=== PATIENT | female | born 1990 | race Caucasian/White ===

== ENCOUNTER 2016-12-06 01:24 | Emergency (ER) | payer BC ==
[~2016-12-06] VITALS: Ht 160 cm; Wt 68.0 kg
[~2016-12-06 01:24] MED LIST: GABAPENTIN100 MG ORAL; SEROQUEL25 MG ORAL
[2016-12-06 01:30] VITALS: BP 116/73
[2016-12-06] MEDS ORDERED: Metoclopramide 10mg/2ml Inj IVP ONE (02:45)
[2016-12-06 03:09] VITALS: BP 106/72
[2016-12-06] MEDS ORDERED: NOVOLOG100 UNIT/3 SUBQ (03:22)
--- NOTE | 2016-12-06 04:18 | Emergency Room Report ---
History of Present Illness General Chief Complaint: Substance Abuse Source: Patient, EMS Present Illness HPI Patient was found that a sore facility with what sounds to be overdose on heroin Patient was given Narcan and responded well Here the patient is awake and alert had some increased nausea after this episode Denies any chest pain or shortness of breath denies any back or flank pain Patient states that this is not the first time she has overdose on heroin requiring the reversal Narcan medication Denies any suicidal or homicidal thoughts And reports incidental overdose ingestion Allergies: Coded Allergies: No Known Allergies (Unverified , 12/06/16) Patient History Past Medical History: see triage record Pertinent Family History: none Last Menstrual Period: 2 weeks ago Reviewed Nursing Documentation: PMH: Agreed, PSxH: Agreed Nursing Documentation-PMH Hx Diabetes: Yes Hx Seizures: Yes Review of Systems All Other Systems: negative except mentioned in HPI Physical Exam Vital Signs Date Time Temp Pulse Resp B/P Pulse Ox O2 Delivery O2 Flow Rate FiO2 12/06/16 01:15 99.0 97 18 123/83 99 Room Air Sp02 EP Interpretation: reviewed, normal General Appearance: no apparent distress - However was nauseated upon arrival Head: normocephalic, atraumatic Eyes: bilateral eye EOMI, bilateral eye PERRL ENT: hearing grossly normal, normal pharynx, TMs + canals normal, uvula midline Neck: full range of motion, supple, no meningismus, no bony tend Respiratory: lungs clear, normal breath sounds, no rhonchi, no respiratory distress, no retraction, no accessory muscle use Cardiovascular #1: normal peripheral pulses, regular rate, rhythm, no edema, no gallop, no JVD, no murmur Gastrointestinal: normal bowel sounds, non tender, soft, no mass, no organomegaly, non-distended, no guarding, no hernia, no pulsatile mass, no rebound Genitourinary: no CVA tenderness Musculoskeletal: normal inspection Neurologic: oriented x3, responsive, air export agent III-XII nml as tested, motor strength/ tone normal, sensory intact Psychiatric: mood/affect normal Skin: normal color, no rash, warm/dry, palpation normal Lymphatic: normal inspection, no adenopathy Medical Decision Making Diagnostic Impression: Primary Impression: Substance abuse Additional Impression: Heroin overdose ER Course Patient was further hydrated and provided with antiemetic medication Continues to do significantly better Patient's test was also negative Patient was that she will not likely be able to return to her sober living after overdosing on heroin Patient will have further discussion for placement with a psychotherapist social worker in the morning Otherwise at this time is stable for emergency room discharge Patient's glucose was rechecked and stabilized Rhythm Strip Diag. Results EP Interpretation: yes Rate: 88 Rhythm: NSR, no PVC's, no ectopy Last Vital Signs Date Time Temp Pulse Resp B/P Pulse Ox O2 Delivery O2 Flow Rate FiO2 12/06/16 03:09 98.9 93 17 106/72 99 Room Air Status: improved Disposition: HOME, SELF-CARE Condition: Improved Referrals: NOT CHOSEN IPA/,REFERRING (PCP) Patient Instructions: Finding Treatment for Addiction Additional Instructions: Patient is provided with the discharge instructions notified to follow up with primary doctor in the next 2-3 days otherwise return to the er with any worsening symptoms. LONG MCKEON D.O. Dec 06, 2016 04:18
[2016-12-06 06:52] VITALS: BP 112/73
[2016-12-06 07:25] VITALS: BP 106/70
[2016-12-06 10:51] VITALS: BP 117/83
== END 2016-12-06 10:55 | disposition home or self-care (01) ==
LOC: EDBD 01:24 → EMR 02:00
DX: T40.1X1A Poisoning by heroin, accidental (unintentional), initial encounter (principal); Y92.9 Unspecified place or not applicable; E11.9 Type 2 diabetes mellitus without complications
CPT/HCPCS: 81025; 96361; 96374; 96375; 99284; J2405; J2765

== ENCOUNTER 2019-01-12 21:04 | Emergency (ER) | payer BC ==
[~2019-01-12] VITALS: Ht 160 cm; Wt 61.2 kg
[~2019-01-12 21:04] MED LIST changes: +NOVOLOG100 UNIT/3 SUBQ
--- NOTE | 2019-01-12 21:35 | NUR ---
ED Nurse Note: Patient walk in c/o multiple panic attacks over the past 2 days. Patient states she normally takes Klonopin and ran out of her prescription. Patient reports right leg numbness since AM. at time of arriva patients blood pressure was 57/35 with a blood sugar of 177. patient is alert and oriented x4 however with a unsteady gait, patient reports of taking an unknown amount of klonopin. Dr. travis aware and notified of patients blood pressure
[2019-01-12 21:45] VITALS: BP 85/52
--- NOTE | 2019-01-12 22:30 | NUR ---
ED Nurse Note: patient is refusing for labs to be drawn as well as medications, Dr. Nava aware and notified
[2019-01-12 23:00] VITALS: BP 85/52
--- NOTE | 2019-01-12 23:00 | NUR ---
ER DISCHARGE NOTE: Patient is leaving AMA without signing papers, patient wants to leave because she is going to another hospital tomorrow morning. patient was informed risks of leaving such as , patient took all belongings with them and ambulated to ED. no labs or meds were done and given. id band removed Addendum: 01/13/19 at 1624 by BPARENTELA ER DISCHARGE NOTE: Patient is leaving AMA without signing papers, patient wants to leave because she is going to another hospital tomorrow morning. patient was informed risks of leaving such as , patient took all belongings with them and ambulated out of ED. no labs or meds were done and given. id band removed
--- NOTE | 2019-01-13 04:18 | Emergency Room Report ---
History of Present Illness General Chief Complaint: General Complaint Source: Patient Present Illness HPI Patient 28-year-old female presented after increased agitation. Generally patient is noted to have prior history of type 1 diabetes. She reports having run out of her Klonopin and feeling somewhat increased anxious. Patient stated that she taken clonidine earlier in the day for blood pressure. She was noted to have low blood pressure when seen by triage nurse. Patient denies any dizziness. Allergies: Coded Allergies: No Known Allergies (Unverified , 12/06/16) Patient History Past Medical History: see triage record Last Menstrual Period: 01/08/2019 Now: No Reviewed Nursing Documentation: PMH: Agreed; PSxH: Agreed Nursing Documentation-PMH Past Medical History: No History, Except For Hx Diabetes: Yes Hx Neurological Problems: Yes - anxiety Hx Seizures: Yes Review of Systems All Other Systems: negative except mentioned in HPI Physical Exam Vital Signs Date Time Temp Pulse Resp B/P (MAP) Pulse Ox O2 Delivery O2 Flow Rate FiO2 01/12/19 21:22 97.9 87 16 95 Room Air Sp02 EP Interpretation: reviewed, normal General Appearance: normal inspection, well appearing, alert Head: atraumatic ENT: normal ENT inspection, hearing grossly normal, normal voice Neck: normal inspection, full range of motion, supple, no bony tend Respiratory: normal inspection, lungs clear, normal breath sounds, no respiratory distress, no retraction, no wheezing Cardiovascular #1: regular rate, rhythm, no edema Gastrointestinal: normal inspection, normal bowel sounds, non tender, soft, no guarding, no hernia Genitourinary: no CVA tenderness Musculoskeletal: normal inspection, back normal, normal range of motion Neurologic: normal inspection, alert, responsive, speech normal Psychiatric: normal inspection, judgement/insight normal, mood/affect normal Skin: normal inspection, normal color, no rash Medical Decision Making Diagnostic Impression: Primary Impression: Anxiety disorder ER Course Patient was noted to have complaint of anxiety and states that she ran out of Klonopin. Differential diagnosis include was not limited to drug-seeking behavior, diabetic ketoacidosis, anxiety, dehydration among others. Patient was noted to have multiple concerning medical complaints. Patient was awake and alert does not appear to be tachypneic. Patient does not appear to be anxious. Laboratory testing was ordered to evaluate for possible diabetic ketoacidosis. Patient refused laboratory testing and stated she wanted to leave. Patient was advised that further workup was advised due to her anxiety. She does not appear to be in any distress. Patient was advised risk benefits and alternatives of leaving AGAINST MEDICAL ADVICE and she indicated understanding and continue to want to leave. Last Vital Signs Date Time Temp Pulse Resp B/P (MAP) Pulse Ox O2 Delivery O2 Flow Rate FiO2 01/12/19 21:22 97.9 87 16 95 Room Air Status: unchanged Disposition: AGAINST MEDICAL ADVICE Condition: Unknown Referrals: NOT CHOSEN IPA/,REFERRING (PCP) Gadiel Nava MD Jan 13, 2019 04:18
== END 2019-01-12 23:00 | disposition home or self-care (01) ==
LOC: EMR 21:37
DX: F41.9 Anxiety disorder, unspecified (principal); R45.1 Restlessness and agitation; E10.9 Type 1 diabetes mellitus without complications
CPT/HCPCS: 96360; 99284

== ENCOUNTER 2019-01-21 13:40 | Inpatient (IN) | payer BC ==
[~2019-01-21] VITALS: Ht 162.6 cm; Wt 68.0 kg
[~2019-01-21 13:40] MED LIST changes: -KLONOPIN1 MG ORAL
[2019-01-21] MEDS ORDERED: KLONOPIN1 MG ORAL (14:15)
[2019-01-21 14:20] VITALS: BP 70/44
--- NOTE | 2019-01-21 14:20 | NUR ---
ED Nurse Note: pt walked in to ED from home due to pain on both leg for couple days. denies any injury or trauma. pt able to walked with steady gait. AAO x4. pt appears to be very sleepy, lethargic and droswy. arousable by voice but went back to sleep right away. skin warm to touch. no open wound noted. low bp noted on court recording monitor. fluid will be given. will wait for the further order.
[2019-01-21 14:59] LABS: BASOPHILS % (AUTO) 1.5 % (0.0-2.0); EOSINOPHILS % (AUTO) 1.1 % (0.0-3.0); HEMATOCRIT 36.3 % (37.0-47.0); HEMOGLOBIN 12.3 G/DL (12.0-16.0); LYMPHOCYTES % (AUTO) 40.3 % (20.0-45.0); MEAN CORPUSCULAR VOLUME 89 FL (80-99); MONOCYTES % (AUTO) 8.5 % (1.0-10.0); NEUTROPHILS % (AUTO) 48.6 % (45.0-75.0); PLATELET COUNT 246 K/UL (150-450); RED BLOOD COUNT 4.07 M/UL (4.20-5.40); RED CELL DISTRIBUTION WIDTH 10.9 % (11.6-14.8); WHITE BLOOD COUNT 5.2 K/UL (4.8-10.8)
--- NOTE | 2019-01-21 15:20 | NUR ---
ED Nurse Note: sandwitches and orange juices provide.
[2019-01-21 15:26] LABS: ANION GAP 13 mmol/L (5-15); BLOOD UREA NITROGEN 39 mg/dL (7-18); CALCIUM 10.7 MG/DL (8.5-10.1); CARBON DIOXIDE 28 MMOL/L (21-32); CHLORIDE 102 MMOL/L (98-107); CREATININE 1.4 MG/DL (0.55-1.30); POTASSIUM 3.6 MMOL/L (3.5-5.1); SODIUM 143 MMOL/L (136-145)
[2019-01-21 15:30] VITALS: BP 130/80
--- NOTE | 2019-01-21 15:30 | NUR ---
ED Nurse Note: pt refused in and out catheter for urine sample. kvng wait.
[2019-01-21 15:31] LABS: ALANINE AMINOTRANSFERASE 16 U/L (12-78); ALBUMIN 4.4 G/DL (3.4-5.0); ALKALINE PHOSPHATASE 161 U/L (46-116); ASPARTATE AMINO TRANSFERASE 16 U/L (15-37); BILIRUBIN,TOTAL 0.4 MG/DL (0.2-1.0)
[2019-01-21 16:30] VITALS: BP 79/44
--- NOTE | 2019-01-21 16:41 | Emergency Room Report ---
History of Present Illness General Chief Complaint: General Complaint Source: Patient Present Illness HPI 28-year-old female presents ED for evaluation. Patient complaining of back pain radiating down the legs for last 5 days. Dull, 8 out of 10. She observed walking into ED. Denies any recent fall or injury. denies bowel or bladder incontinence. Patient is very lethargic on initial evaluation. She states that she took 3 mg of Klonopin today. States she is supposed to take 1 mg but states she was feeling very anxious. Blood pressure low. Blood pressure 70 systolic. No other aggravating relieving factors. Denies any other associated symptoms Allergies: Coded Allergies: No Known Allergies (Unverified , 12/06/16) Patient History Past Medical History: psych hx Past Surgical History: none Pertinent Family History: none Social History: Reports: drug use; Denies: smoking, alcohol use Last Menstrual Period: 12/20/18 Now: No : 0 Para: 0 Immunizations: UTD Reviewed Nursing Documentation: PMH: Agreed; PSxH: Agreed Nursing Documentation-PMH Past Medical History: No History, Except For Hx Diabetes: Yes Hx Neurological Problems: Yes - anxiety Hx Seizures: Yes Review of Systems All Other Systems: negative except mentioned in HPI Physical Exam Vital Signs Date Time Temp Pulse Resp B/P (MAP) Pulse Ox O2 Delivery O2 Flow Rate FiO2 01/21/19 14:10 98.1 90 18 70/50 97 Room Air Sp02 EP Interpretation: reviewed, normal General Appearance: no apparent distress, GCS 15, non-toxic, lethargic Head: normocephalic, atraumatic Eyes: bilateral eye normal inspection, bilateral eye PERRL ENT: hearing grossly normal, normal pharynx, no angioedema, normal voice Neck: full range of motion, supple/symm/no masses Respiratory: chest non-tender, lungs clear, normal breath sounds, speaking full sentences Cardiovascular #1: regular rate, rhythm, no edema Cardiovascular #2: 2+ carotid (R), 2+ carotid (L), 2+ radial (R), 2+ radial (L) , 2+ dorsalis pedis (R), 2+ dorsalis pedis (L) Gastrointestinal: normal bowel sounds, non tender, soft, non-distended, no guarding, no rebound Rectal: deferred Genitourinary: normal inspection, no CVA tenderness Musculoskeletal: back normal, gait/station normal, normal range of motion, non- tender Neurologic: responsive, motor strength/tone normal, sensory intact, other - lethargic Psychiatric: other - lethargic Reflexes: 3+ bicep (R), 3+ bicep (L), 3+ tricep (R), 3+ tricep (L), 3+ knee (R) , 3+ knee (L) Skin: normal color, no rash, warm/dry, well hydrated Lymphatic: no adenopathy Medical Decision Making Diagnostic Impression: Primary Impression: Substance abuse Additional Impression: Overdose Qualified Codes: T50.901A - Poisoning by unspecified drugs, medicaments and biological substances, accidental (unintentional), initial encounter ER Course Hospital Course 28-year-old female presents with lethargy, hypotensive. Took Klonopin today. History of diabetes Differential diagnoses include: dehydration, infection, overdose, DKA Clinical course She placed on stretcher. On property assessment monitor. After initial history and physical ordered labs, IV fluids Labs reviewed-electrolytes okay, no leukocytosis, hemoglobin/hematocrit stable, Utox negative Patient initially hypotensive. Improved after multiple IV fluid boluses Patient remains lethargic , not safe for discharge at this time. It does not appear that patient was trying to hurt herself case discussed with Dr. Zavala and he agreed to accept the patient to his service for further care and support i. I feel this is a highly complex case requiring extensive working including EKG/Rhythm strip, Xray/CT/US, Blood/urine lab work, repeat exams while in ED, and administration of strong opiates/narcotics for pain control, admission to hospital or close patient follow up. Diagnosis - substance abuse, overdose Admitted to floor in serious condition Labs Test 01/21/19 14:41 01/21/19 16:30 White Blood Count 5.2 K/UL (4.8-10.8) Red Blood Count 4.07 M/UL (4.20-5.40) Hemoglobin 12.3 G/DL (12.0-16.0) Hematocrit 36.3 % (37.0-47.0) Mean Corpuscular Volume 89 FL (80-99) Mean Corpuscular Hemoglobin 30.2 PG (27.0-31.0) Mean Corpuscular Hemoglobin Concent 33.9 G/DL (32.0-36.0) Red Cell Distribution Width 10.9 % (11.6-14.8) Platelet Count 246 K/UL (150-450) Mean Platelet Volume 5.5 FL (6.5-10.1) Neutrophils (%) (Auto) 48.6 % (45.0-75.0) Lymphocytes (%) (Auto) 40.3 % (20.0-45.0) Monocytes (%) (Auto) 8.5 % (1.0-10.0) Eosinophils (%) (Auto) 1.1 % (0.0-3.0) Basophils (%) (Auto) 1.5 % (0.0-2.0) Sodium Level 143 MMOL/L (136-145) Potassium Level 3.6 MMOL/L (3.5-5.1) Chloride Level 102 MMOL/L (98-107) Carbon Dioxide Level 28 MMOL/L (21-32) Anion Gap 13 mmol/L (5-15) Blood Urea Nitrogen 39 mg/dL (7-18) Creatinine 1.4 MG/DL (0.55-1.30) Estimat Glomerular Filtration Rate 45.1 mL/min (>60) Glucose Level 69 MG/DL (74-106) Calcium Level 10.7 MG/DL (8.5-10.1) Total Bilirubin 0.4 MG/DL (0.2-1.0) Aspartate Amino Transf (AST/SGOT) 16 U/L (15-37) Alanine Aminotransferase (ALT/SGPT) 16 U/L (12-78) Alkaline Phosphatase 161 U/L (46-116) Total Protein 8.7 G/DL (6.4-8.2) Albumin 4.4 G/DL (3.4-5.0) Globulin 4.3 g/dL Albumin/Globulin Ratio 1.0 (1.0-2.7) Human Chorionic Gonadotropin, Qual Negative (NEGATIVE) Salicylates Level 4.2 ug/mL (2.8-20) Acetaminophen Level < 2 MCG/ML (10-30) Serum Alcohol < 3 mg/dL Acetone Level Negative (NEGATIVE) Urine HCG, Qualitative Negative (NEGATIVE) Urine Opiates Screen Negative (NEGATIVE) Urine Barbiturates Screen Negative (NEGATIVE) Phencyclidine (PCP) Screen Negative (NEGATIVE) Urine Amphetamines Screen Negative (NEGATIVE) Urine Benzodiazepines Screen Negative (NEGATIVE) Urine Cocaine Screen Negative (NEGATIVE) Urine Marijuana (THC) Screen Negative (NEGATIVE) Last Vital Signs Date Time Temp Pulse Resp B/P (MAP) Pulse Ox O2 Delivery O2 Flow Rate FiO2 01/21/19 15:30 98.3 78 17 130/80 98 Room Air Status: improved Disposition: ADMITTED INPATIENT Condition: Serious Referrals: NOT CHOSEN IPA/,REFERRING (PCP) Andriy Mota MD Jan 21, 2019 16:41
[2019-01-21 17:30] VITALS: BP 91/58
[2019-01-21 19:30] VITALS: BP 106/52
--- NOTE | 2019-01-21 19:30 | NUR ---
ED Nurse Note: RECEIVED REPORT FROM RN ARTURO AND ENDORSED CARE, PT VSS, RESP EVEN AND UNLABORED ON RA, AROUSABLE TO LIGHT SHAKE, DENIES SI/HI/VH/AH. PT STATES SHE TOOK EXTRA KLONOPIN BECAUSE SHE FORGOT TO TAKE HER MED AND WAS SCARED SHE WAS GOING TO HAVE SZ. PT LAST KNOWN SZ WAS 6 MONTHS AGO. PT AIRWAY INTACT, SZ AND ASPIRATION PRECAUTION IN PLACE, WILL CONT MONITOR.
--- NOTE | 2019-01-21 19:30 | NUR ---
HAND-OFF: Report given to LUKAS Aburto.
--- NOTE | 2019-01-21 19:45 | NUR ---
Note devora in EDM - 01/22/19 at 0502 by [email or web address] ED Nurse Note: REPORT GIVEN TO LUKAS LOAIZA AND ENDORSED CARE, PT TRANSFERRED TO MS, VSS, AMBULATORY W/ STEADY GAIT, NO NEURO CHANGES, ALL BELONGINGS SENT W/ PT, IV INTACT AND PATENT.
--- NOTE | 2019-01-21 20:00 | NUR ---
ED Nurse Note: PT C/O LEG PAIN, ERMD NOTIFIED, RECEIVED VERBAL ORDER TYLENOL 1000MG PO TAB, PT STATES TYLENOL DOESN'T WORK AND DOESN'T WANT TO TAKE IT, REQ MORPHINE, ERMD NOTIFIED, NO ORDERS RECEIVED, PT BLE CMS INTACT, GOOD STRENGTH, NO TRAUMA, AMBULATES W/ STEADY GAIT, WILL CONT MONITOR.
[2019-01-21] MEDS ORDERED: Zolpidem 5mg tab ORAL PRN (21:15)
[2019-01-21] MEDS ORDERED: Mylanta II UD 30ml ORAL PRN (21:15)
[2019-01-21] MEDS ORDERED: Miralax 17gm pkt ORAL PRN (21:15)
[2019-01-21] MEDS ORDERED: LORazepam Inj 2mg/ml 1ml IV PRN (21:15)
--- NOTE | 2019-01-21 22:47 | NUR ---
ED Nurse Note: REPORT GIVEN TO RN JOSSE AND ENDORSED CARE, PT TRANSFERRED TO MS, VSS, AMBULATORY W/ STEADY GAIT, NO NEURO CHANGES, ALL BELONGINGS SENT W/ PT, IV INTACT AND PATENT.
--- NOTE | 2019-01-21 23:00 | NUR ---
NURSE NOTES: Admitted patient awake,alert,verbal,ambulatory with stable vital signs.
[2019-01-22] MEDS: Morphine Sulfate 2mg/ml Inj(IV/IM USE ONLY) IVP PRN ×4 (00:05→12:47)
[2019-01-22] MEDS: NovoLOG Insulin Flexpen SUBQ SCH ×2 (06:22→11:15)
--- NOTE | 2019-01-22 07:29 | NUR ---
HAND-OFF: Report given to Min Mackenzie RN.
[2019-01-22 07:36] VITALS: BP 128/90
--- NOTE | 2019-01-22 07:54 | NUR ---
NURSE NOTES: pt awake alert, no distress. no sob. call light within reach. bed in lowest position, locked. will monitor.
--- NOTE | 2019-01-22 08:52 | NUR ---
APPRAISER PERSONAL PROPERTYCOKE OVEN MASON 28 Y/O FEMALE CAME IN TO ER FROM HOME CC:GENERAL COMPLAINT SI: ALTERED MENTAL STATUS . OVERDOSE VS: BP 70/44, P 90, T 98.1, RR 24, SpO2 97 BUN 39, CR 1.4, Glucose 69, Ca 10.7, RBC 4.07, Hct 36.3 IS:SEROQUEL 25mg NOVOLOG SUBQ MORPHINE 1mG NS x1L IV D50 50ml MED/SURG STATUS Addendum: 01/22/19 at 0920 by Ludivina Mehta LVN DC PLAN: RETURN HOME
[2019-01-22] MEDS ORDERED: Heparin 5000 units/ml inj SUBQ SCH (09:00)
[2019-01-22 10:07] LABS: EOSINOPHILS % (AUTO) 1.8 % (0.0-3.0); HEMOGLOBIN 10.8 G/DL (12.0-16.0); MEAN CORPUSCULAR VOLUME 91 FL (80-99); MONOCYTES % (AUTO) 5.4 % (1.0-10.0); NEUTROPHILS % (AUTO) 57.8 % (45.0-75.0); PLATELET COUNT 178 K/UL (150-450); RED BLOOD COUNT 3.53 M/UL (4.20-5.40); RED CELL DISTRIBUTION WIDTH 11.1 % (11.6-14.8); WHITE BLOOD COUNT 5.8 K/UL (4.8-10.8)
[2019-01-22 10:20] LABS: ALANINE AMINOTRANSFERASE 13 U/L (12-78); ALBUMIN 3.4 G/DL (3.4-5.0); ALKALINE PHOSPHATASE 125 U/L (46-116); ANION GAP 10 mmol/L (5-15); ASPARTATE AMINO TRANSFERASE 16 U/L (15-37); BILIRUBIN,TOTAL 0.3 MG/DL (0.2-1.0); BLOOD UREA NITROGEN 22 mg/dL (7-18); CALCIUM 8.6 MG/DL (8.5-10.1); CARBON DIOXIDE 25 MMOL/L (21-32); CHLORIDE 104 MMOL/L (98-107); CHOLESTEROL 225 MG/DL (< 200); CREATININE 0.8 MG/DL (0.55-1.30); HDL CHOLESTEROL 44 MG/DL (40-60); POTASSIUM 4.7 MMOL/L (3.5-5.1); SODIUM 139 MMOL/L (136-145); TRIGLYCERIDES 334 MG/DL (30-150)
--- NOTE | 2019-01-22 10:34 | NUR ---
Social Work This Sw met with patient to address possible drug abuse or mental health concerns. Patient explains she was living in a sober living, but was asked to leave, stating the manager army of the program did not understand her diabetes and was creating "drama out of it." Patient explains she has a history of alcohol abuse, attending AA meetings and counseling for this. Patient denied any recent substance abuse and planning to discharge to home with her boyfriend. This Sw discussed other sober living options with patient, who explained she has resources already (declined any substance abuse resources from this Sw at this time). Brief support provided to patient to maintain her sobriety.
[2019-01-22 12:00] VITALS: BP 114/83
--- NOTE | 2019-01-22 12:41 | NUR ---
NURSE NOTES: Dr Massey made aware of blood sugar trend, no new orders at this time. also made md aware that pt wants to go home
--- NOTE | 2019-01-22 14:19 | NUR ---
NURSE NOTES: pt left in stable condition, arm band removed, iv removed by pt no bleeding, all belongings with the pt
--- NOTE | 2019-01-22 14:32 | History and Physical ---
History of Present Illness General Date patient seen: Jan 22, 2019 Reason for Hospitalization: General Complaint Present Illness HPI 28-year-old female presents ED for evaluation. Patient complaining of back pain radiating down the legs for last 5 days. Dull, 8 out of 10. She observed walking into ED. Denies any recent fall or injury. denies bowel or bladder incontinence. Patient is very lethargic on initial evaluation. She states that she took 3 mg of Klonopin today. States she is supposed to take 1 mg but states she was feeling very anxious. Blood pressure low. Blood pressure 70 systolic. No other aggravating relieving factors. Denies any other associated symptoms Allergies: Coded Allergies: No Known Allergies (Unverified , 12/06/16) Medication History Scheduled Clonazepam* (Klonopin*), 1 MG ORAL Q6H, (Reported) Gabapentin* (Gabapentin*), 800 MG ORAL THREE TIMES A DAY, (Reported) Quetiapine Fumarate* (Seroquel*), 25 MG ORAL TWICE A DAY, (Reported) Miscellaneous Medications Insulin Aspart* (Novolog*), 0 SUBQ, (Reported) Patient History Healthcare decision maker Resuscitation status Full Code Advanced Directive on File No Past Medical/Surgical History Past Medical/Surgical History: (1) Anxiety disorder (2) Substance abuse Review of Systems All Other Systems: negative except mentioned in HPI Physical Exam General Appearance: WD/WN Lines, tubes and drains: peripheral HEENT: normocephalic Neck: non-tender Respiratory/Chest: chest wall non-tender, decreased breath sounds Cardiovascular/Chest: normal rate Abdomen: normal bowel sounds Last 24 Hour Vital Signs Date Time Temp Pulse Resp B/P (MAP) Pulse Ox O2 Delivery O2 Flow Rate FiO2 01/22/19 13:17 98.0 01/22/19 12:00 98.0 72 18 114/83 (93) 99 01/22/19 07:52 Room Air 01/22/19 07:36 98.0 92 18 128/90 (103) 99 01/22/19 05:29 Room Air 01/21/19 22:47 98.4 68 16 108/61 96 Room Air 01/21/19 19:30 98.3 68 16 106/52 98 Room Air 01/21/19 17:30 98.3 72 16 91/58 97 Room Air 01/21/19 16:30 76 17 79/44 99 Room Air 01/21/19 15:30 98.3 78 17 130/80 98 Room Air Intake and Output 01/21/19 01/22/19 18:59 06:59 Intake Total 2000 ml 1600 ml Balance 2000 ml 1600 ml Intake Oral 0 ml 600 ml IV Total 2000 ml 1000 ml # Voids 2 Laboratory Tests Test 01/21/19 14:41 01/21/19 16:30 01/22/19 09:40 White Blood Count 5.2 K/UL (4.8-10.8) 5.8 K/UL (4.8-10.8) Red Blood Count 4.07 M/UL (4.20-5.40) L 3.53 M/UL (4.20-5.40) L Hemoglobin 12.3 G/DL (12.0-16.0) 10.8 G/DL (12.0-16.0) L Hematocrit 36.3 % (37.0-47.0) L 32.0 % (37.0-47.0) L Mean Corpuscular Volume 89 FL (80-99) 91 FL (80-99) Mean Corpuscular Hemoglobin 30.2 PG (27.0-31.0) 30.6 PG (27.0-31.0) Mean Corpuscular Hemoglobin Concent 33.9 G/DL (32.0-36.0) 33.7 G/DL (32.0-36.0) Red Cell Distribution Width 10.9 % (11.6-14.8) L 11.1 % (11.6-14.8) L Platelet Count 246 K/UL (150-450) 178 K/UL (150-450) Mean Platelet Volume 5.5 FL (6.5-10.1) L 5.6 FL (6.5-10.1) L Neutrophils (%) (Auto) 48.6 % (45.0-75.0) 57.8 % (45.0-75.0) Lymphocytes (%) (Auto) 40.3 % (20.0-45.0) 34.0 % (20.0-45.0) Monocytes (%) (Auto) 8.5 % (1.0-10.0) 5.4 % (1.0-10.0) Eosinophils (%) (Auto) 1.1 % (0.0-3.0) 1.8 % (0.0-3.0) Basophils (%) (Auto) 1.5 % (0.0-2.0) 1.0 % (0.0-2.0) Sodium Level 143 MMOL/L (136-145) 139 MMOL/L (136-145) Potassium Level 3.6 MMOL/L (3.5-5.1) 4.7 MMOL/L (3.5-5.1) Chloride Level 102 MMOL/L (98-107) 104 MMOL/L (98-107) Carbon Dioxide Level 28 MMOL/L (21-32) 25 MMOL/L (21-32) Anion Gap 13 mmol/L (5-15) 10 mmol/L (5-15) Blood Urea Nitrogen 39 mg/dL (7-18) H 22 mg/dL (7-18) H Creatinine 1.4 MG/DL (0.55-1.30) H 0.8 MG/DL (0.55-1.30) Estimat Glomerular Filtration Rate 45.1 mL/min (>60) > 60 mL/min (>60) Glucose Level 69 MG/DL (74-106) L 302 MG/DL (74-106) #H Calcium Level 10.7 MG/DL (8.5-10.1) H 8.6 MG/DL (8.5-10.1) Total Bilirubin 0.4 MG/DL (0.2-1.0) 0.3 MG/DL (0.2-1.0) Aspartate Amino Transf (AST/SGOT) 16 U/L (15-37) 16 U/L (15-37) Alanine Aminotransferase (ALT/SGPT) 16 U/L (12-78) 13 U/L (12-78) Alkaline Phosphatase 161 U/L (46-116) H 125 U/L (46-116) H Total Protein 8.7 G/DL (6.4-8.2) H 6.9 G/DL (6.4-8.2) Albumin 4.4 G/DL (3.4-5.0) 3.4 G/DL (3.4-5.0) Globulin 4.3 g/dL 3.5 g/dL Albumin/Globulin Ratio 1.0 (1.0-2.7) 1.0 (1.0-2.7) Human Chorionic Gonadotropin, Qual Negative (NEGATIVE) Salicylates Level 4.2 ug/mL (2.8-20) Acetaminophen Level < 2 MCG/ML (10-30) L Serum Alcohol < 3 mg/dL Acetone Level Negative (NEGATIVE) Urine HCG, Qualitative Negative (NEGATIVE) Urine Opiates Screen Negative (NEGATIVE) Urine Barbiturates Screen Negative (NEGATIVE) Phencyclidine (PCP) Screen Negative (NEGATIVE) Urine Amphetamines Screen Negative (NEGATIVE) Urine Benzodiazepines Screen Negative (NEGATIVE) Urine Cocaine Screen Negative (NEGATIVE) Urine Marijuana (THC) Screen Negative (NEGATIVE) Triglycerides Level 334 MG/DL (30-150) H Cholesterol Level 225 MG/DL (< 200) H LDL Cholesterol 128 mg/dL (<100) H HDL Cholesterol 44 MG/DL (40-60) Cholesterol/HDL Ratio 5.1 (3.3-4.4) H Height (Feet): 5 Height (Inches): 4.00 Weight (Pounds): 150 Assessment/Plan Problem List: (1) Altered mental status ICD Codes: R41.82 - Altered mental status, unspecified SNOMED: 653358141 (2) Substance abuse ICD Codes: F19.10 - Other psychoactive substance abuse, uncomplicated SNOMED: 44944118 (3) Anxiety disorder ICD Codes: F41.9 - Anxiety disorder, unspecified SNOMED: 701626397 Assessment/Plan pt feeling better wants to go home f/u with outpatient psychiatry. Boyfriend accompanied the pt/ Rocio Massey MD Jan 22, 2019 14:31
--- NOTE | 2019-01-22 15:37 | Discharge Summary ---
Discharge Summary Hospital Course Date of Admission Jan 21, 2019 at 20:28 Date of Discharge Jan 22, 2019 at 14:19 Admitting Diagnosis AMS/overdose HPI Kate Oconnor is a 28 year old female who was admitted on Jan 21, 2019 at 20:28 for Altered Mental Status,Overdose Hospital Course Discharge Discharge Disposition Patient was discharged to Home (01) Mynor Zavala MD Jan 22, 2019 15:37
--- NOTE | 2019-01-22 16:04 | NUR ---
*-* INSURANCE *-* CLINICLAS AND REVIEWS FAXED TOa: [employer] [place] P- [phone] F/S FAXED TO: FX: [phone] FX: [phone] SEND CLAIMS TO: ANTON LEZAMA PLEASE FAX THE REVIEW/CLINICAL..
--- NOTE | 2019-01-23 01:45 | Discharge Summary ---
DATE OF ADMISSION: 01/21/2019 DATE OF DISCHARGE: 01/22/2019 CHIEF COMPLAINT: Altered mental status. HISTORY OF PRESENT ILLNESS: This 28-year-old female with past medical history significant for anxiety disorder, who was presented to the emergency room complaining about back pain radiated to the legs and for the past 5 days, the patient has pain over 8/10 in intensity, dull, observed walking in the ER and denies any recent fall or head injury. Denies any bowel or urine incontinence. The patient was noted to be very lethargic on initial evaluation and she took 3 mg of Klonopin today in order to help her with pain, supposed to take 1 mg however and felt very anxious. Blood pressure was noted to be low in systolic of 70s and subsequently the patient was admitted to the hospital altered mental status most likely secondary to medication induced with acute encephalopathy. PAST MEDICAL HISTORY AND PAST SURGICAL HISTORY: As above, history of anxiety disorder. The patient has history of diabetic type 2 as well as seizure disorder. MEDICATIONS: At home, significant for clonazepam, gabapentin, Seroquel, and NovoLog. ALLERGIES: No known drug allergies. SOCIAL HISTORY: Denies any smoking or substance abuse. FAMILY HISTORY: Noncontributory. REVIEW OF SYSTEMS: Mostly as above. Denies any dysuria, frequency, or hematuria. Denies any hemoptysis or hematochezia. PHYSICAL EXAMINATION: VITAL SIGNS: On admission, temperature 98.3, pulse of 78, respirations 17, and blood pressure 130/80. GENERAL: The patient is awake, responsive, no acute distress. LUNGS: No wheezes, rhonchi. HEART: S1, S2. Regular rhythm. No gallops. ABDOMEN: Soft, nondistended, and nontender. Positive bowel sounds. EXTREMITIES: No cyanosis, clubbing, or edema. NEUROLOGIC: Cranial nerves II through XII are grossly intact. Motor is 5/5 in all extremities. The patient was evaluated by Dr. Massey and subsequently status improved and discharged home today to be followed by as outpatient with her primary doctor. FINAL DIAGNOSES: 1. Anxiety disorder. 2. History of substance abuse. 3. Diabetes type 2. 4. Seizure disorder. MEDICATIONS ON DISCHARGE: Continue discharge medication list. ACTIVITY: As tolerated. DIET: Would be an 1800 ADA diet. Mynor Zavala M.D. DR: MORIAH JOB#: [id number] CC:
== END 2019-01-22 14:19 | disposition home or self-care (01) | DRG 918 ==
LOC: EMR 14:28 → 4E 20:28 → EDBEDREQ 22:20
DX: T42.4X1A Poisoning by benzodiazepines, accidental (unintentional), initial encounter (principal); F41.9 Anxiety disorder, unspecified; R41.82 Altered mental status, unspecified; F19.10 Other psychoactive substance abuse, uncomplicated; E11.9 Type 2 diabetes mellitus without complications; Z79.4 Long term (current) use of insulin; R56.9 Unspecified convulsions
CPT/HCPCS: 36415; 80053; 80061; 80307; 80329; 81025; 82009; 82962; 84703; 85025; 96361; 96374; 99285; J1815

== ENCOUNTER → 2019-01-21 | Emergency (ER) | payer BC ==
[~2019-01-21] VITALS: Ht 160 cm; Wt 61.7 kg
[~2019-01-21] MED LIST changes: +KLONOPIN1 MG ORAL
--- NOTE | 2019-01-21 13:20 | NUR ---
ED Nurse Note: Patient left without being seen stating "i can not be here i want to smoke a cigarette" Staff encouraged patient to wait to be seen but left. Patient is able to ambulate. Patient was informed the risks of leaving regarding patient's condition. Patient states "i dont care, i am getting antsy, i just want to smoke" ID band removed.
--- NOTE | 2019-01-21 13:22 | Emergency Room Report ---
History of Present Illness General Chief Complaint: General Complaint Source: Patient Present Illness Allergies: Coded Allergies: No Known Allergies (Unverified , 12/06/16) Patient History Last Menstrual Period: 1 month Now: No Nursing Documentation-[facility] Past Medical History: No History, Except For Hx Diabetes: Yes Hx Neurological Problems: Yes - anxiety Hx Seizures: Yes Physical Exam Vital Signs Date Time Temp Pulse Resp B/P (MAP) Pulse Ox O2 Delivery O2 Flow Rate FiO2 01/21/19 13:07 97.9 98 18 87/63 97 Room Air Medical Decision Making Last Vital Signs Date Time Temp Pulse Resp B/P (MAP) Pulse Ox O2 Delivery O2 Flow Rate FiO2 01/21/19 13:07 97.9 98 18 87/63 97 Room Air Status: other Disposition: LEFT W/OUT BEING SEEN Condition: Unknown Inés Henriquez DO Jan 21, 2019 13:22
[2019-01-21 13:25] VITALS: BP 87/63
== END | disposition left against medical advice (07) ==
LOC: EMR 13:25
DX: Z53.21 Procedure and treatment not carried out due to patient leaving prior to being seen by health care provider (principal)

== ENCOUNTER 2019-03-25 03:38 | Inpatient (IN) | payer BC ==
[~2019-03-25] VITALS: Ht 160 cm; Wt 51.8 kg
[2019-03-25] VITALS (22 sets, daily range): BP systolic 119–142; BP diastolic 54–103
[~2019-03-25 03:38] MED LIST changes: +KLONOPIN1 MG ORAL
--- NOTE | 2019-03-25 03:42 | NUR ---
ED Nurse Note: Pt brought in my LAFD for nausea and vomiting. FD states pt went AMA yesterday from hospital for DKA. BS when checked by FD was 455. Upon arrival BS was checked with reading of critically high. VSS aside from tachycardia noted of 107. Pt alert and responsive but unable to get much information from pt.
--- NOTE | 2019-03-25 04:09 | Emergency Room Report ---
History of Present Illness General Chief Complaint: Abnormal Labs Source: EMS Present Illness HPI Patient is a 28-year-old female brought in by EMS after increased nausea and vomiting. Prior history of type 1 diabetes. Patient had prior history of anxiety and reports withdrawing from her benzodiazepines. She states that she had been vomiting multiple times. She does not recall when she last took her insulin. Patient states that she had previous history of poor venous access had a recent right femoral line placement. Allergies: Coded Allergies: No Known Allergies (Unverified , 12/06/16) Patient History Past Medical History: see triage record Last Menstrual Period: unk Reviewed Nursing Documentation: PMH: Agreed; PSxH: Agreed Nursing Documentation-PMH Hx Cardiac Problems: No Hx Diabetes: Yes Hx Cancer: No Hx Gastrointestinal Problems: No Hx Neurological Problems: Yes - anxiety Hx Seizures: Yes Review of Systems All Other Systems: negative except mentioned in HPI Physical Exam Vital Signs Date Time Temp Pulse Resp B/P (MAP) Pulse Ox O2 Delivery O2 Flow Rate FiO2 03/25/19 03:41 96 16 153/96 (115) 03/25/19 03:57 98.6 100 Room Air General Appearance: alert, moderate distress, Chronically Ill Eyes: bilateral eye PERRL ENT: dry mucus membranes Neck: full range of motion Respiratory: chest non-tender, lungs clear, normal breath sounds Cardiovascular #1: tachycardia Gastrointestinal: normal bowel sounds, non tender, soft Genitourinary: normal inspection Neurologic: normal inspection, alert, responsive Skin: normal inspection Procedures Critical Care Time Critical Care Time Patient had a critical medical condition which untreated could potentially result in life or limb threatening injury. Total critical care time excluding procedures approximately 45 minutes. Central Line Central Line : Consent: Emergent Central Line Lumen: triple Maximal Sterile Barrier Tech: yes cap, yes mask, yes sterile gown, yes sterile gloves, yes large sterile sheet, yes hand hygiene, yes chlorhexidine prep No Max Barrier Tech Because: other Central Line Postion: internal jugular (R) Anesthesia: Lidocaine cc's of anesthesia: 5 Complications: none Central Line Post Position: sutured Attempts: Other - two Patient Tolerated: Well Complications: None Medical Decision Making Diagnostic Impression: Primary Impression: Diabetic keto-acidosis Additional Impressions: Anxiety Dehydration Urinary tract infection ER Course Patient presented for vomiting. Differential diagnosis include was not limited to gastroparesis, , diabetic ketoacidosis, bowel obstruction among others. Because of complexity of patient's case laboratory testing and imaging studies were ordered. Patient was noted to have multiple episodes of vomiting in the emergency department. She was noted to have extremely poor IV access. Patient EKG showed sinus tachycardia with a rate of 107 with prolonged QT interval 566 patient. Patient was noted to have slightly elevated white blood count. Potassium was noted to be in the normal range. Bicarb was 7. Patient was noted to have recent right femoral line which showed some evidence of bruising to the area a right subclavian central venous catheter was attempted however was unable to thread the guidewire. A right internal jugular venous catheter was placed under sterile technique with adequate line placement. Postprocedure chest x-ray showed no evidence of pneumothorax with adequate line placement. Patient's laboratory testing showed evidence of diabetic ketoacidosis. Dr. Mynor Zavala was contacted for inpatient management due to prior admission. Last Vital Signs Date Time Temp Pulse Resp B/P (MAP) Pulse Ox O2 Delivery O2 Flow Rate FiO2 03/25/19 03:57 98.6 108 19 126/64 100 Room Air Status: improved Disposition: ADMITTED INPATIENT Condition: Critical Referrals: NOT CHOSEN [facility]/,REFERRING (PCP) Gadiel Nava MD March 25, 2019 04:09
[2019-03-25] MEDS ORDERED: Lidocaine 1% Plain 30 ml INJ ONE ×2 (04:11→04:15)
[2019-03-25] MEDS ORDERED: Metoclopramide 10mg/2ml Inj IVP ONE (05:15)
--- NOTE | 2019-03-25 05:19 | NUR ---
ED Nurse Note: IJ inserted by NEVILLE. blood drawn and sent to lab. Pt currently being administered 2L NS. Pt resting comfortably. Showing no signs of acute distress. Pt remains tachycardic, VSS otherwise.
[2019-03-25 05:20] LABS: APPEARANCE,URINE SLIGHTLY CLOUDY; BILIRUBIN, URINE NEGATIVE (NEGATIVE); COLOR,URINE PALE YELLOW; GLUCOSE, URINE (UA) 4+ (NEGATIVE); KETONES,URINE 4+ (NEGATIVE); LEUKOCYTE ESTERASE ,URINE 2+ (NEGATIVE); NITRITE,URINE NEGATIVE (NEGATIVE); PH,URINE 5 (4.5-8.0); PROTEIN,URINE 2+ (NEGATIVE); UROBILINOGEN,URINE NORMAL MG/DL (0.0-1.0)
[2019-03-25 05:22] LABS: HEMATOCRIT 31.9 % (37.0-47.0); HEMOGLOBIN 10.8 G/DL (12.0-16.0); MEAN CORPUSCULAR VOLUME 91 FL (80-99); PLATELET COUNT 752 K/UL (150-450); RED BLOOD COUNT 3.51 M/UL (4.20-5.40); RED CELL DISTRIBUTION WIDTH 11.9 % (11.6-14.8); WHITE BLOOD COUNT 13.4 K/UL (4.8-10.8)
[2019-03-25] MEDS ORDERED: Insulin Human Regular 100units/ml 3ml IV ONE (05:30)
[2019-03-25 05:38] LABS: ALANINE AMINOTRANSFERASE 23 U/L (12-78); ALBUMIN 4.6 G/DL (3.4-5.0); ALBUMIN/GLOBULIN RATIO 1.1 (1.0-2.7); ALKALINE PHOSPHATASE 165 U/L (46-116); ANION GAP 36 mmol/L (5-15); ASPARTATE AMINO TRANSFERASE 21 U/L (15-37); BILIRUBIN,TOTAL 0.7 MG/DL (0.2-1.0); BLOOD UREA NITROGEN 29 mg/dL (7-18); CALCIUM 9.7 MG/DL (8.5-10.1); CHLORIDE 91 MMOL/L (98-107); CREATININE 1.5 MG/DL (0.55-1.30); POTASSIUM 4.6 MMOL/L (3.5-5.1); SODIUM 136 MMOL/L (136-145)
[2019-03-25] MEDS ORDERED: cefTRIAXone 1 GM in NS 55 ML IVPB ONE (05:45)
[2019-03-25] MEDS ORDERED: Insulin Human Regular 100units/ml 3ml ONE (05:49)
[2019-03-25 05:53] LABS: CARBON DIOXIDE 9 MMOL/L (21-32)
[2019-03-25] MEDS ORDERED: LORazepam Inj 2mg/ml 1ml IV ONE (06:15)
[2019-03-25] MEDS ORDERED: Miralax 17gm pkt ORAL PRN (06:45)
[2019-03-25] MEDS ORDERED: Albuterol/Ipratropium 3ml neb HHN PRN (06:45)
[2019-03-25] MEDS ORDERED: Insulin Human Regular 100units/ml 3ml IV PRN (06:45)
--- NOTE | 2019-03-25 06:45 | NUR ---
NURSE NOTES: Admitted 28 year old female patient from ER. Endorsement received from LUKAS Mccoy. Patient admitted for DKA. Patient awake and alert.Oriented x3. On room air. 100% saturation on the monitor. With right IJ TLC. Ongoing insulin drip 6units/hr. Skin is intact. Afebrile. No report of pain or nausea at this time. Assisted to bed. On seizure precautions. Bed locked and in low position. Bed alarm on. Call light within reach. Oriented patient to room, call light.
--- NOTE | 2019-03-25 06:45 | NUR ---
ED Nurse Note: Pt transferred to ICU. Report given to Dipti GAYTAN. Pt A/Ox4. Currently has RIJ with regular insulin drip running @ 6 u/hr. Pt showing no signs of acute distress. VSS aside from tachycardia noted @ 105. All belongings taken with pt along with belongings list. Pt accompanied by RN and topography technician and connected to computer operator.
[2019-03-25] MEDS ORDERED: Nitroglycerin Subl 0.4mg tab SL PRN (07:00)
[2019-03-25] MEDS ORDERED: Morphine Sulfate 4mg/ml Inj (IV USE ONLY) IVP PRN (07:00)
--- NOTE | 2019-03-25 07:04 | NUR ---
ER Nurse Note: Boyfriend Don called asking for updates; unable to provide. Contact info . Will endorse to primary nurse.
--- NOTE | 2019-03-25 07:23 | NUR ---
HAND-OFF: Report given to Emmy stephens for continuity of care.
--- NOTE | 2019-03-25 07:45 | NUR ---
NURSE NOTES: Received the patient from LUKAS Resendez. Patient is awake, alert and oriented, able to follow commands. On room air. ST HR 120-130s noted on the monitor. BP stable, afebrile. Right IJ TLC intact, running insulin drip at 6units/hr. Denies any pain, n/v. pt kept NPO. Bed in lowest position, locked, side rails upx3. On seizure precautions, side rails padded. Bed alarm on. Will continue to monitor.
--- NOTE | 2019-03-25 08:00 | NUR ---
NURSE NOTES: Patient noted with BS 457, insulin drip rate changed to 17units/hr, on algorithm 3. will scan the barcode when delivered. 10units Regular Insulin given.
--- NOTE | 2019-03-25 08:47 | NUR ---
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 DEHYDRATION VS: BP 153/96, P 113, T 97.8, RR 27, SpO2 100 WBC 13.4, RBC 3.51, H&H 10.8/31.9, CO2 9, BUN 29, CR 1.5, GLUCOSE 681 IS:LIDOCAINE HCI 30ml INJ REGLAN 10mg NOVOLIN R 6units IV INSULIN HUMAN REGULAR/NS 100ml IV CEFTRIAXONE 55ml IVPB LORAZEPAM 0.5mg IV ADMITTED TO ICU DCP: RETURN HOME
[2019-03-25] MEDS: Heparin 5000 units/ml inj SUBQ SCH ×2 (08:56→20:16)
[2019-03-25] MEDS: Insulin Rate Change 1 Each MISC PRN ×11 (08:58→21:02)
[2019-03-25] MEDS: Insulin Human Regular 100units/ml 3ml IV PRN ×3 (09:02→13:01)
--- NOTE | 2019-03-25 09:10 | NUR ---
NURSE NOTES: 0900 BS 203, BS decreased by >100mg/dl in 1 hour, changed to algorithm 2 per protocol. Insulin gtt running at 4units/hr, 5units regular insulin IVP given. Patient used bedside commode, voided x1. Addendum: 03/25/19 at 0922 by SHARONDA HOWARD RN will scan the barcode when delivered by pharmacy.
--- NOTE | 2019-03-25 10:05 | NUR ---
NURSE NOTES: BS @1000 shows 98, insulin drip changed to algorithm 1, running at 0.2unit/hr.
--- NOTE | 2019-03-25 10:27 | Consultation ---
History of Present Illness General Chief Complaint: Abnormal Labs Present Illness HPI 28-year-old female with hx of DM, anxiety, substance abuse, brought in by EMS after increased nausea and vomiting. She is also reports withdrawing from her benzodiazepines. Patient states that she had previous history of poor venous access had a recent right femoral line placement. She is admitted to ICU and was started on insulin drip. Allergies: Coded Allergies: No Known Allergies (Unverified , 12/06/16) Medication History Scheduled Clonazepam* (Klonopin*), 1 MG ORAL Q6H, (Reported) Gabapentin* (Gabapentin*), 800 MG ORAL THREE TIMES A DAY, (Reported) Quetiapine Fumarate* (Seroquel*), 25 MG ORAL TWICE A DAY, (Reported) Miscellaneous Medications Insulin Aspart* (Novolog*), 0 SUBQ, (Reported) Patient History Healthcare decision maker Resuscitation status Advanced Directive on File Past Medical/Surgical History Past Medical/Surgical History: (1) Diabetes mellitus (2) Anxiety disorder (3) Substance abuse Review of Systems Constitutional: Reports: weakness Gastrointestinal: Reports: nausea Neurological: Reports: dizziness All Other Systems: negative except mentioned in HPI Physical Exam General Appearance: thin Lines, tubes and drains: peripheral HEENT: normocephalic, atraumatic Neck: non-tender, normal alignment Respiratory/Chest: chest wall non-tender, lungs clear Breasts: no masses Cardiovascular/Chest: normal peripheral pulses Abdomen: normal bowel sounds Last 24 Hour Vital Signs Date Time Temp Pulse Resp B/P (MAP) Pulse Ox O2 Delivery O2 Flow Rate FiO2 03/25/19 10:00 129 19 139/92 (108) 99 03/25/19 09:00 126 21 136/91 (106) 100 03/25/19 08:00 Room Air 03/25/19 08:00 113 03/25/19 08:00 98.2 113 23 137/91 (106) 96 03/25/19 07:00 114 25 127/103 (111) 100 03/25/19 07:00 Room Air 03/25/19 06:51 98.0 113 24 142/90 (107) 100 03/25/19 06:45 98.6 112 27 129/54 100 Room Air 03/25/19 06:30 98.4 112 24 129/54 97 Room Air 5/23/19 06:00 98.6 113 27 132/77 100 Room Air 03/25/19 05:00 98.0 109 22 125/84 100 Room Air 03/25/19 03:57 97.8 108 19 126/64 100 Room Air 03/25/19 03:41 96 16 153/96 (115) Laboratory Tests Test 03/25/19 05:02 White Blood Count 13.4 K/UL (4.8-10.8) H Red Blood Count 3.51 M/UL (4.20-5.40) L Hemoglobin 10.8 G/DL (12.0-16.0) L Hematocrit 31.9 % (37.0-47.0) L Mean Corpuscular Volume 91 FL (80-99) Mean Corpuscular Hemoglobin 30.8 PG (27.0-31.0) Mean Corpuscular Hemoglobin Concent 33.9 G/DL (32.0-36.0) Red Cell Distribution Width 11.9 % (11.6-14.8) Platelet Count 752 K/UL (150-450) H Mean Platelet Volume 4.4 FL (6.5-10.1) L Neutrophils (%) (Auto) % (45.0-75.0) Lymphocytes (%) (Auto) % (20.0-45.0) Monocytes (%) (Auto) % (1.0-10.0) Eosinophils (%) (Auto) % (0.0-3.0) Basophils (%) (Auto) % (0.0-2.0) Differential Total Cells Counted 100 Neutrophils % (Manual) 93 % (45-75) H Lymphocytes % (Manual) 5 % (20-45) L Monocytes % (Manual) 2 % (1-10) Eosinophils % (Manual) 0 % (0-3) Basophils % (Manual) 0 % (0-2) Band Neutrophils 0 % (0-8) Platelet Estimate Adequate Platelet Morphology Normal Red Blood Cell Morphology Normal Urine Color Pale yellow Urine Appearance Slightly cloudy Urine pH 5 (4.5-8.0) Urine Specific [place] 1.015 (1.005-1.035) Urine Protein 2+ (NEGATIVE) H Urine Glucose (UA) 4+ (NEGATIVE) H Urine Ketones 4+ (NEGATIVE) H Urine Blood 1+ (NEGATIVE) H Urine Nitrite Negative (NEGATIVE) Urine Bilirubin Negative (NEGATIVE) Urine Urobilinogen Normal MG/DL (0.0-1.0) Urine Leukocyte Esterase 2+ (NEGATIVE) H Urine RBC 2-4 /HPF (0 - 2) H Urine WBC 15-20 /HPF (0 - 2) H Urine Squamous Epithelial Cells Moderate /LPF (NONE/OCC) H Urine Bacteria Few /HPF (NONE) Urine HCG, Qualitative Negative (NEGATIVE) Sodium Level 136 MMOL/L (136-145) Potassium Level 4.6 MMOL/L (3.5-5.1) Chloride Level 91 MMOL/L (98-107) L Carbon Dioxide Level 9 MMOL/L (21-32) *L Anion Gap 36 mmol/L (5-15) H Blood Urea Nitrogen 29 mg/dL (7-18) H Creatinine 1.5 MG/DL (0.55-1.30) H Estimat Glomerular Filtration Rate 41.6 mL/min (>60) Glucose Level 681 MG/DL (74-106) *H Calcium Level 9.7 MG/DL (8.5-10.1) Magnesium Level 1.8 MG/DL (1.8-2.4) Total Bilirubin 0.7 MG/DL (0.2-1.0) Aspartate Amino Transf (AST/SGOT) 21 U/L (15-37) Alanine Aminotransferase (ALT/SGPT) 23 U/L (12-78) Alkaline Phosphatase 165 U/L (46-116) H Total Protein 8.9 G/DL (6.4-8.2) H Albumin 4.6 G/DL (3.4-5.0) Globulin 4.3 g/dL Albumin/Globulin Ratio 1.1 (1.0-2.7) Acetone Level Positive-moderate (NEGATIVE) Microbiology Date/Time Source Procedure Growth Status 03/25/19 04:24 Rectum Received Height (Feet): 5 Height (Inches): 3.00 Weight (Pounds): 134 Medications Current Medications Medications (Trade) Dose Ordered Sig/Claudia Route PRN Reason Start Time Stop Time Status Last Admin Dose Admin Acetaminophen (Tylenol) 650 mg Q4H PRN ORAL Fever 03/25/19 06:45 04/24/19 06:44 Albuterol/ Ipratropium (Albuterol/ Ipratropium) 3 ml Q4H PRN HHN Shortness of Breath 03/25/19 06:45 03/30/19 06:44 Dextrose (Dextrose 50%) 25 ml Q30M PRN IV HYPOGLYCEMIA 03/25/19 06:45 04/24/19 06:44 Dextrose (Dextrose 50%) 50 ml Q30M PRN IV Hypoglycemia 03/25/19 06:45 04/24/19 06:44 Dextrose/Sodium Chloride 1,000 ml @ 200 mls/hr Q5H IV 03/25/19 10:30 04/24/19 10:29 Heparin Sodium (Porcine) (Heparin 5000 units/ml) 5,000 units EVERY 12 HOURS SUBQ 03/25/19 09:00 04/24/19 08:59 03/25/19 08:56 Insulin Human Regular (NovoLIN R) 5 units PRN PRN IV BS 200-299 03/25/19 06:59 04/24/19 06:58 03/25/19 09:02 Insulin Human Regular (NovoLIN R) 10 units PRN PRN IV BS=>300 03/25/19 06:45 04/24/19 06:44 03/25/19 08:07 Insulin Human Regular 100 units/ Sodium Chloride 100 ml @ 0 mls/hr Q24H IV 03/25/19 09:45 04/24/19 09:29 03/25/19 10:13 Insulin Human Regular 100 units/ Sodium Chloride 100 ml @ 0 mls/hr Q24H IV 03/25/19 10:15 04/24/19 10:14 03/25/19 10:12 Lorazepam (Ativan 2mg/ml 1ml) 2 mg Q2H PRN IV agitation 03/25/19 06:45 04/01/19 06:44 Miscellaneous Medication (Insulin Rate Change) 1 ea PRN PRN MISC To Patient Comfort 03/25/19 06:45 04/24/19 06:44 03/25/19 10:04 Morphine Sulfate (Morphine Sulfate) 4 mg Q4H PRN IVP Severe Pain (Pain Scale 7-10) 03/25/19 07:00 04/01/19 06:59 Nitroglycerin (Ntg) 0.4 mg Q5MIN X 3 DOSES PRN SL Prn Chest Pain 03/25/19 07:00 04/24/19 06:59 Ondansetron HCl (Zofran) 4 mg Q6H PRN IVP Nausea & Vomiting 03/25/19 06:45 04/24/19 06:44 Polyethylene Glycol (Miralax) 17 gm DAILYPRN PRN ORAL Constipation 03/25/19 06:45 04/24/19 06:44 Sodium Chloride 1,000 ml @ 150 mls/hr Q6H40M IV 03/25/19 06:59 04/24/19 06:58 03/25/19 07:51 Assessment/Plan Problem List: (1) Diabetic keto-acidosis ICD Codes: E11.10 - Type 2 diabetes mellitus with ketoacidosis without coma SNOMED: 109636622, 75418070 (2) Anxiety disorder ICD Codes: F41.9 - Anxiety disorder, unspecified SNOMED: 808846195 (3) Diabetes mellitus ICD Codes: E11.9 - Type 2 diabetes mellitus without complications SNOMED: 38462032 Assessment/Plan: insulin drip hourly accuceck iv fluids check electrolytes dvt prophylaxis H2 blockers antiemetics Rocio Massey MD March 25, 2019 10:26
[2019-03-25] MEDS: D5 1/2NS 1,000 ML IV SCH ×3 (10:43→20:01)
--- NOTE | 2019-03-25 11:00 | NUR ---
NURSE NOTES: Patient is restless, standing/sitting by bed. Attempted to assist the patient to go back to bed but patient refused. Patient not talking, does not answer questions. Patient denies pain by shaking head. Patient has non-skid socks on. will continue to monitor.
--- NOTE | 2019-03-25 11:40 | Diagnostic Imaging Report ---
Indication: Line placed Comparison: None A single view chest radiograph was obtained. Findings: Right jugular line is present. The tip projects over the right atrium. No pneumothorax seen. Lungs are clear. Heart size is normal. IMPRESSION: Right jugular line in good position. No pneumothorax.
--- NOTE | 2019-03-25 11:55 | NUR ---
NURSE NOTES: Patient asleep in bed comfortably, no acute distress noted. Bed in lowest position, locked, call light within reach. Bed alarm on.
[2019-03-25 11:59] LABS: ALANINE AMINOTRANSFERASE 21 U/L (12-78); ALBUMIN 4.4 G/DL (3.4-5.0); ALKALINE PHOSPHATASE 159 U/L (46-116); ANION GAP 25 mmol/L (5-15); ASPARTATE AMINO TRANSFERASE 30 U/L (15-37); BILIRUBIN,TOTAL 0.6 MG/DL (0.2-1.0); BLOOD UREA NITROGEN 24 mg/dL (7-18); CALCIUM 8.7 MG/DL (8.5-10.1); CARBON DIOXIDE 11 MMOL/L (21-32); CHLORIDE 101 MMOL/L (98-107); CREATININE 1.4 MG/DL (0.55-1.30); POTASSIUM 4.8 MMOL/L (3.5-5.1); SODIUM 137 MMOL/L (136-145)
--- NOTE | 2019-03-25 13:00 | NUR ---
NURSE NOTES: Patient noted with BS 217. changed insulin drip to Algorithm 2, running at 4units/hr. Addendum: 03/25/19 at 1348 by SHARONDA HOWARD RN Dr. Massey made aware of BS >200
--- NOTE | 2019-03-25 13:15 | NUR ---
NURSE NOTES: Patient vomited x1, black emesis noted. Zofran prn given.
--- NOTE | 2019-03-25 14:00 | NUR ---
NURSE NOTES: Patient is sleeping comfortably. No acute distress noted. VSS, ST 100s noted. On RA. Insulin drip running at 2.5units/hr. awaiting for pharmacy to deliver new label.
--- NOTE | 2019-03-25 15:20 | NUR ---
NURSE NOTES: Patient awake, standing up by the bed. provided patient education on fall risk. Patient refused to go back to bed. Patient refuses to talk, does not answer any questions. Will continue to monitor.
--- NOTE | 2019-03-25 15:45 | NUR ---
NURSE NOTES: Patient voided x1, incontinent, unable to collect urine sample at this time.
--- NOTE | 2019-03-25 15:58 | NUR ---
*-* INSURANCE *-* ALL CLINICALS AND REVIEWS HAVE BEEN FAXED TO: [facility] SEND A FACE SHEET AND ALL CLINICALS/DISCHARGE SUMMARY TO FAX [phone]
--- NOTE | 2019-03-25 16:12 | NUR ---
Social Service Note Patient appears to be alert and oriented. However patient will only answer questions by nodding her head. Patient provides eye contact and has a flat affect. Patient nodded no that she has diabetic medications or diabetic supplies. Patient nodded yes that she lives with her boyfriend Jvaier. OMAR attempted to confirm address upon discharge however patient wouldn't reply. Patient nodded yes for OMAR to contact her boyfriend Javier Shelton [phone]. OMAR spoke with Javier who states they are residing at a sober living located at [address] [place] [address]. This is the location patient will return to upon discharge. Javier confirmed patient is out of all medications and diabetic supplies. Patient will require prescriptions. Patient has not established a PCP and typically goes month to month to hospitals for medication refills. OMAR spoke with patient's health plan [phone] and patient can be seen by any [facility] provider. Health plan encourages their members to establish an online account to locate a provider. OMAR will discuss with patient's boyfriend. Patient with a prior history of heroin abuse. Patient nodded yes that her father Wilber Oconnor [phone] and mother Ana Oconnor [phone] can be contacted as needed. Will continue to monitor.
--- NOTE | 2019-03-25 16:59 | NUR ---
NURSE NOTES: Patient resting in bed with eyes closed. no acute distress noted. no s/sx of pain at this time.
--- NOTE | 2019-03-25 18:35 | History & Physical ---
History and Physical History & Physicial Dictated for Int Med-Dr Zavala no. [id number]. Levy Orlando MD March 25, 2019 18:35
[2019-03-25] MEDS: LORazepam Inj 2mg/ml 1ml IV PRN ×2 (18:43→23:44)
--- NOTE | 2019-03-25 18:50 | NUR ---
NURSE NOTES: Patient seen by Dr. Orlando. Patient is sitting at the edge of the bed, shaking hands. Only responds by nodding or shaking her head. Ativan given for anxiety and agitation.
--- NOTE | 2019-03-25 19:17 | NUR ---
HAND-OFF: Report given to LUKAS Resendez and LUKAS Reyes.
--- NOTE | 2019-03-25 19:25 | NUR ---
NURSE NOTES: Received patient from Emmy Shields RN. Patient is awake and non-verbal at the moment, not responding to name or any questions. Assisted patient back into bed. Vital signs are stable. Bed is on lowest position, bed alarm is activated, call light within reach and safety measures in place. Will continue plan of care.
[2019-03-25] MEDS ORDERED: Dyna-Hex 2% Top Sol 2oz TOPIC SCH (20:00)
[2019-03-25 20:22] LABS: ANION GAP 13 mmol/L (5-15); BLOOD UREA NITROGEN 18 mg/dL (7-18); CALCIUM 8.6 MG/DL (8.5-10.1); CARBON DIOXIDE 22 MMOL/L (21-32); CHLORIDE 102 MMOL/L (98-107); CREATININE 1.2 MG/DL (0.55-1.30); SODIUM 137 MMOL/L (136-145)
--- NOTE | 2019-03-25 20:40 | NUR ---
NURSE NOTES: Called Dr. Orlando and relayed Potassium, anion gap and latest blood sugar. ALeft a message, waiting for return call.
--- NOTE | 2019-03-25 21:00 | NUR ---
NURSE NOTES: Received a return call from Dr. Orlando with new order for potassium 20 IV x1
--- NOTE | 2019-03-25 22:00 | NUR ---
NURSE NOTES: Vitals signs are stable, patient is awake and alert. Blood sugar check resulting in 121, insulin gtt 4u/hr, no change from previous hour. Also running 20meq KCL @ 50ml/hour one time via left IJ for K: 3.0. Visitor at bedside and he has been advised that patient is NPO. Safety precautions in place. Will continue care.
--- NOTE | 2019-03-25 23:15 | History and Physical Report ---
DATE OF ADMISSION: 03/25/2019 CHIEF COMPLAINT: The patient is a 28-year-old white female with history of type 1 diabetes, who presents with a chief complaint of nausea and vomiting. HISTORY OF PRESENT ILLNESS: The patient was admitted to [facility] in January of 2019. Please see history and physical and discharge summary dictated at that time. The patient presented to [facility] after calling EMS. The patient states she has had nausea and vomiting for one day. The patient is unable to tolerate liquids or solids. The patient herself is not able to cooperate much with the history and physical. She appears to be extremely anxious. The patient was found to have venous blood glucose value 681 in the emergency room. The patient is admitted for uncontrolled diabetes type 1 and possible benzodiazepine withdrawal. REVIEW OF SYSTEMS: Unable to assess secondary to the patient's mental status. PAST MEDICAL HISTORY: Significant for, 1. Type 1 diabetes. 2. Anxiety disorder. 3. History of polysubstance abuse. PAST SURGICAL HISTORY: The patient denies. CURRENT MEDICATIONS: 1. Klonopin 1 mg one tab p.o. q.6 hours p.r.n. 2. Neurontin 800 mg p.o. 3 times daily. 3. NovoLog sliding scale. 4. Seroquel 25 mg p.o. twice daily. ALLERGIES: No known drug allergies. SOCIAL HISTORY: The patient is single. The patient denies tobacco or alcohol use. PHYSICAL EXAMINATION: VITAL SIGNS: Temperature 98, respirations 25, pulse 98 to 120, blood pressure 119 to 137/74 to 101. GENERAL: The patient is a well-developed and well-nourished thin-appearing white female, who is anxious. HEENT: Eyes, pupils are equal and responsive to light and accommodation. Extraocular movements are intact. NECK: Supple. No lymphadenopathy. CHEST: Lungs are clear to auscultation bilaterally without wheezes or rales. CARDIOVASCULAR: Regular rhythm and rate. S1 and S2 are normal without murmurs, rubs, or gallops. ABDOMEN: Soft, nontender, and nondistended. Positive bowel sounds. No evidence of hepatosplenomegaly. Currently, no rebound or guarding noted. EXTREMITIES: Negative for clubbing, cyanosis, or edema. RECTAL/GENITAL: Not performed. NEUROLOGIC: Cranial nerves II through XII are grossly intact without focal deficits. Motor strength is 5/5 bilaterally. Deep tendon reflexes are 2+ plantar. LABORATORY STUDIES: WBC 13.4, hemoglobin 10.8, hematocrit 31.9, and platelets 752,000. Sodium 136, potassium 4.6, chloride 91, CO2 9, BUN 29, creatinine 1.5, and glucose 681 . Anion gap of 36. ASSESSMENT: This is a 28-year-old white female. 1. Hyperglycemia. 2. Diabetes type 2. 3. Hyperglycemia. 4. Diabetes type 1. 5. Anxiety disorder. 6. Benzodiazepine dependence. TREATMENT: 1. Hyperglycemia/diabetes type 1. Endocrinology consultation has been obtained with Dr. Philip. The patient has been started empirically on insulin drip. Repeat BMP is pending. 2. Anxiety/benzodiazepine dependence. A Psychiatry consultation has been obtained with Dr. Barajas. Levy Orlando M.D. DR: KENTRELL JOB#: [id number] CC:
[2019-03-26] VITALS (19 sets, daily range): BP systolic 115–139; BP diastolic 63–98
--- NOTE | 2019-03-26 | NUR ---
NURSE NOTES: Patient is awake and drowsy. Blood sugar 122 and insulin adjusted per protocol. Shows no signs of distress or pain. Safety measures in place; bed on lowest position, bed alarm is activated. Will continue care.
[2019-03-26] MEDS: D5 1/2NS 1,000 ML IV SCH ×3 (01:09→17:45)
--- NOTE | 2019-03-26 01:30 | Consultation ---
DATE OF CONSULTATION: 03/25/2019 NOTE: "POOR AUDIO QUALITY" ENDOCRINOLOGY CONSULTATION CONSULTING PHYSICIAN: Tal Philip M.D. REFERRING PHYSICIAN: Mynor Zavala M.D. REASON FOR CONSULTATION: DKA. HISTORY OF PRESENT ILLNESS: The patient is a 28-year-old female with history of type 1 diabetes. She presented to the hospital with diabetic ketoacidosis, open anion gap with bicarbonate of 9. The patient has history of anxiety and has been off benzodiazepine and was noncompliant with her insulin regimen. ALLERGIES TO MEDICATIONS: None. MEDICATIONS AT HOME: As per HPI. PAST MEDICAL HISTORY: 1. Type 1 diabetes. 2. Substance abuse. SOCIAL HISTORY: Substance abuse with smoking. No alcohol. REVIEW OF SYSTEMS: As per HPI. LABORATORY VALUES: Sodium 136, potassium 4.6, chloride 91, bicarb 9, anion gap 36, BUN 29, creatinine 1.5, glucose 681. PHYSICAL EXAMINATION: VITAL SIGNS: Blood pressure 137/91, pulse 113, temperature of 98.2, respiratory rate 23. HEENT: Pupils reactive to light. Sclerae anicteric. NECK: No JVD. HEART: Regular. LUNGS: Clear. ABDOMEN: Positive bowel sounds. EXTREMITIES: No clubbing, cyanosis, or edema. DIAGNOSES: DKA, noncompliance with insulin. PLAN: 1. The patient will be admitted to the ICU. 2. IV hydration. 3. IV insulin. 4. Glucose monitoring every hour. 5. Follow electrolytes closely and repeat. 6. Once the gap is closed, recommend to stop the insulin. I will follow the patient during hospital stay. Thank you, Dr. Zavala, for the courtesy of this consultation. Tal Philip M.D. DR: LUKAS/LINCOLN JOB#: [id number] CC: RASHIDA
--- NOTE | 2019-03-26 02:00 | NUR ---
NURSE NOTES: Bladder scan performed on patient, showing 117ml. Patient is currently receiving D5 1/2 NS @ 200ml/hour. Patient is beginning to get edematous on bilateral upper extremities. 5 rings were taking off her hands due to swelling and placed into container into her purse/belongings bag at bedside. Vital signs are stable, will continue care.
[2019-03-26] MEDS: Insulin Rate Change 1 Each MISC PRN ×6 (02:11→09:11)
--- NOTE | 2019-03-26 04:00 | NUR ---
NURSE NOTES: Patient shows no signs of pain and distress. Resting comfortably sitting up in bed as requested. Bed on lowest position, alarm is activated and call light within reach. Will continue plan of care.
[2019-03-26 05:06] LABS: BASOPHILS % (AUTO) 0.5 % (0.0-2.0); EOSINOPHILS % (AUTO) 0.2 % (0.0-3.0); HEMATOCRIT 31.7 % (37.0-47.0); HEMOGLOBIN 10.9 G/DL (12.0-16.0); LYMPHOCYTES % (AUTO) 18.3 % (20.0-45.0); MEAN CORPUSCULAR VOLUME 85 FL (80-99); NEUTROPHILS % (AUTO) 73.1 % (45.0-75.0); PLATELET COUNT 174 K/UL (150-450); RED BLOOD COUNT 3.73 M/UL (4.20-5.40); RED CELL DISTRIBUTION WIDTH 11.4 % (11.6-14.8); WHITE BLOOD COUNT 13.8 K/UL (4.8-10.8)
[2019-03-26 05:41] LABS: ALANINE AMINOTRANSFERASE 16 U/L (12-78); ALBUMIN 3.3 G/DL (3.4-5.0); ALBUMIN/GLOBULIN RATIO 0.9 (1.0-2.7); ALKALINE PHOSPHATASE 121 U/L (46-116); ANION GAP 9 mmol/L (5-15); ASPARTATE AMINO TRANSFERASE 23 U/L (15-37); BILIRUBIN,DIRECT < 0.1 MG/DL (0.0-0.3); BILIRUBIN,TOTAL 0.4 MG/DL (0.2-1.0); BLOOD UREA NITROGEN 13 mg/dL (7-18); CALCIUM 8.7 MG/DL (8.5-10.1); CARBON DIOXIDE 21 MMOL/L (21-32); CHLORIDE 102 MMOL/L (98-107); PHOSPHORUS 1.5 MG/DL (2.5-4.9); POTASSIUM 2.9 MMOL/L (3.5-5.1); SODIUM 132 MMOL/L (136-145)
--- NOTE | 2019-03-26 06:00 | NUR ---
NURSE NOTES: Patient is awake and is currently answering questions and stating request. Vital signs are stable, blood sugar 100, patient is not in distress. Visitor is at bedside, will continue plan of care.
--- NOTE | 2019-03-26 06:28 | NUR ---
NURSE NOTES: Lab result shows positive for THC, K OF 2.9. Called Dr. Orlando, left a message and awaiting for return call.
[2019-03-26] MEDS: LORazepam Inj 2mg/ml 1ml IV PRN ×2 (06:31→11:02)
--- NOTE | 2019-03-26 07:20 | NUR ---
HAND-OFF: Report given to Zully Shields RN.
--- NOTE | 2019-03-26 07:21 | NUR ---
NURSE NOTES: Report received from Dipti/LUKAS Reyes. Pt is sleeping in bed. Able to answer for all the questions asked. Oriented x4. Afebrile. Sinus rhythm on cardiac specialist. On RA. Kept NPO as per order. Commode at bedside. Right IJ TLC patent and asymptomatic. Pt is on Insulin drip at 4 units/hr on Jett 4. D51/2NS is running at 200cc/hr. Bed in lowest position. Call light within reach. Bed exit alarm on. Will resume plan of care.
[2019-03-26] MEDS: Heparin 5000 units/ml inj SUBQ SCH ×2 (08:13→20:23)
[2019-03-26] MEDS ORDERED: Pantoprazole Inj IVP SCH (09:00)
[2019-03-26] MEDS ORDERED: Levemir Flexpen SUBQ SCH ×2 (09:30→18:00)
--- NOTE | 2019-03-26 09:35 | NUR ---
NURSE NOTES: Pt assisted to sit on a commode for 800c urine. Pt assisted back to bed. Dr Massey here to see the patient. Updated him with pt's current condition. He ordered to transfer pt to med-surg this afternoon if pt continues to be stable. Will carry out his orders.
[2019-03-26] MEDS ORDERED: D5 1/2NS 1,000 ML IV SCH (09:38)
--- NOTE | 2019-03-26 10:33 | NUR ---
*-* INSURANCE *-* UPDATED CLINICALS HAVE BEEN FAXED TO: [facility] SEND A FACE SHEET AND ALL CLINICALS/DISCHARGE SUMMARY TO FAX [phone]
--- NOTE | 2019-03-26 10:41 | NUR ---
NURSE NOTES: Pt is not eating breakfast. BS 97. Levemir half dose 5 units given.
--- NOTE | 2019-03-26 11:03 | NUR ---
NURSE NOTES: PRN Ativan 2mg IVP given for agitation and anxiety. Will continue to monitor.
[2019-03-26] MEDS: NovoLOG Insulin Flexpen SUBQ SCH ×4 (12:21→20:27)
[2019-03-26 12:24] LABS: ANION GAP 12 mmol/L (5-15); BLOOD UREA NITROGEN 8 mg/dL (7-18); CALCIUM 8.3 MG/DL (8.5-10.1); CARBON DIOXIDE 22 MMOL/L (21-32); CHLORIDE 103 MMOL/L (98-107); CREATININE 0.8 MG/DL (0.55-1.30); POTASSIUM 3.5 MMOL/L (3.5-5.1); SODIUM 137 MMOL/L (136-145)
[2019-03-26] MEDS ORDERED: Sodium Phosphate 30 MM in NS 275 ML IV ONE (12:45)
--- NOTE | 2019-03-26 13:21 | Internal Med Progress Note ---
Subjective Physician Name Mynor Zavala Attending Physician Mynor Zavala MD Current Medications Medications (Trade) Dose Ordered Sig/Claudia Route PRN Reason Start Time Stop Time Status Last Admin Dose Admin Acetaminophen (Tylenol) 650 mg Q4H PRN ORAL Fever 03/25/19 06:45 04/24/19 06:44 Albuterol/ Ipratropium (Albuterol/ Ipratropium) 3 ml Q4H PRN HHN Shortness of Breath 03/25/19 06:45 03/30/19 06:44 Chlorhexidine Gluconate (Yue-Hex 2%) 1 applic DAILY@2000 TOPIC 03/25/19 20:00 04/24/19 19:59 03/25/19 20:01 Dextrose (Dextrose 50%) 25 ml Q30M PRN IV HYPOGLYCEMIA 03/25/19 06:45 04/24/19 06:44 Dextrose (Dextrose 50%) 50 ml Q30M PRN IV Hypoglycemia 03/25/19 06:45 04/24/19 06:44 Dextrose/Sodium Chloride 1,000 ml @ 50 mls/hr Q20H IV 03/26/19 09:38 04/25/19 09:37 03/26/19 10:22 Heparin Sodium (Porcine) (Heparin 5000 units/ml) 5,000 units EVERY 12 HOURS SUBQ 03/25/19 09:00 04/24/19 08:59 03/26/19 08:13 Insulin Aspart (NovoLOG) BEFORE MEALS AND HS SUBQ 03/26/19 11:30 04/25/19 11:29 03/26/19 12:21 Insulin Detemir (Levemir) 10 units EVERY 12 HOURS SUBQ 03/26/19 09:30 04/25/19 09:29 03/26/19 10:40 Lorazepam (Ativan 2mg/ml 1ml) 2 mg Q2H PRN IV agitation 03/25/19 06:45 04/01/19 06:44 03/26/19 11:02 Miscellaneous Medication (Insulin Rate Change) 1 ea PRN PRN MISC To Patient Comfort 03/25/19 06:45 04/24/19 06:44 03/26/19 09:11 Morphine Sulfate (Morphine Sulfate) 4 mg Q4H PRN IVP Severe Pain (Pain Scale 7-10) 03/25/19 07:00 04/01/19 06:59 Nitroglycerin (Ntg) 0.4 mg Q5MIN X 3 DOSES PRN SL Prn Chest Pain 03/25/19 07:00 04/24/19 06:59 Ondansetron HCl (Zofran) 4 mg Q6H PRN IVP Nausea & Vomiting 03/25/19 06:45 04/24/19 06:44 03/25/19 13:10 Pantoprazole (Protonix) 40 mg DAILY IVP 03/26/19 09:00 04/25/19 08:59 03/26/19 08:12 Polyethylene Glycol (Miralax) 17 gm DAILYPRN PRN ORAL Constipation 03/25/19 06:45 04/24/19 06:44 Sodium Phosphate 30 mm/Sodium Chloride 285 ml @ 47.5 mls/hr ONCE ONCE IV 03/26/19 12:45 03/26/19 18:44 03/26/19 11:02 Allergies: Coded Allergies: No Known Allergies (Unverified , 12/06/16) Subjective awake, alert, responsive, sleepy, in ICU. Objective Last Vital Signs Date Time Temp Pulse Resp B/P (MAP) Pulse Ox O2 Delivery O2 Flow Rate FiO2 03/26/19 12:00 98.3 105 18 119/75 (90) 98 03/26/19 12:00 Room Air 03/25/19 21:29 21 Laboratory Tests Test 03/25/19 19:44 03/26/19 03:50 03/26/19 05:00 03/26/19 12:00 Sodium Level 137 MMOL/L (136-145) 132 MMOL/L (136-145) L 137 MMOL/L (136-145) Potassium Level 3.0 MMOL/L (3.5-5.1) L 2.9 MMOL/L (3.5-5.1) L 3.5 MMOL/L (3.5-5.1) Chloride Level 102 MMOL/L (98-107) 102 MMOL/L (98-107) 103 MMOL/L (98-107) Carbon Dioxide Level 22 MMOL/L (21-32) 21 MMOL/L (21-32) 22 MMOL/L (21-32) Anion Gap 13 mmol/L (5-15) 9 mmol/L (5-15) 12 mmol/L (5-15) Blood Urea Nitrogen 18 mg/dL (7-18) 13 mg/dL (7-18) 8 mg/dL (7-18) Creatinine 1.2 MG/DL (0.55-1.30) 1.0 MG/DL (0.55-1.30) 0.8 MG/DL (0.55-1.30) Estimat Glomerular Filtration Rate 53.9 mL/min (>60) > 60 mL/min (>60) > 60 mL/min (>60) Glucose Level 114 MG/DL (74-106) H 117 MG/DL (74-106) H 196 MG/DL (74-106) H Calcium Level 8.6 MG/DL (8.5-10.1) 8.7 MG/DL (8.5-10.1) 8.3 MG/DL (8.5-10.1) L White Blood Count 13.8 K/UL (4.8-10.8) H Red Blood Count 3.73 M/UL (4.20-5.40) L Hemoglobin 10.9 G/DL (12.0-16.0) L Hematocrit 31.7 % (37.0-47.0) L Mean Corpuscular Volume 85 FL (80-99) Mean Corpuscular Hemoglobin 29.2 PG (27.0-31.0) Mean Corpuscular Hemoglobin Concent 34.4 G/DL (32.0-36.0) Red Cell Distribution Width 11.4 % (11.6-14.8) L Platelet Count 174 K/UL (150-450) # Mean Platelet Volume 4.7 FL (6.5-10.1) L Neutrophils (%) (Auto) 73.1 % (45.0-75.0) Lymphocytes (%) (Auto) 18.3 % (20.0-45.0) L Monocytes (%) (Auto) 8.0 % (1.0-10.0) Eosinophils (%) (Auto) 0.2 % (0.0-3.0) Basophils (%) (Auto) 0.5 % (0.0-2.0) Prothrombin Time 10.5 SEC (9.30-11.50) Prothromb Time International Ratio 1.0 (0.9-1.1) Activated Partial Thromboplast Time 22 SEC (23-33) L Phosphorus Level 1.5 MG/DL (2.5-4.9) L Total Bilirubin 0.4 MG/DL (0.2-1.0) Direct Bilirubin < 0.1 MG/DL (0.0-0.3) Aspartate Amino Transf (AST/SGOT) 23 U/L (15-37) Alanine Aminotransferase (ALT/SGPT) 16 U/L (12-78) Alkaline Phosphatase 121 U/L (46-116) H Total Protein 7.0 G/DL (6.4-8.2) Albumin 3.3 G/DL (3.4-5.0) L Globulin 3.7 g/dL Albumin/Globulin Ratio 0.9 (1.0-2.7) L Urine Opiates Screen Negative (NEGATIVE) Urine Barbiturates Screen Negative (NEGATIVE) Phencyclidine (PCP) Screen Negative (NEGATIVE) Urine Amphetamines Screen Negative (NEGATIVE) Urine Benzodiazepines Screen Negative (NEGATIVE) Urine Cocaine Screen Negative (NEGATIVE) Urine Marijuana (THC) Screen Positive (NEGATIVE) H Microbiology Date/Time Source Procedure Growth Status 03/25/19 05:02 Urine,Clean Catch Urine Culture - Preliminary NO GROWTH AFTER 24 HOURS Resulted 03/25/19 05:00 Arm Right Blood Culture - Preliminary NO GROWTH AFTER 24 HOURS Resulted 03/25/19 04:45 Arm Left Blood Culture - Preliminary NO GROWTH AFTER 24 HOURS Resulted 03/25/19 04:24 Rectum Received Intake and Output 03/25/19 03/26/19 19:00 07:00 Intake Total 2265.5 ml 2399.83 ml Output Total 900 ml Balance 2265.5 ml 1499.83 ml Intake Oral 200 ml IV Total 2065.5 ml 2399.83 ml Output Urine Total 900 ml # Voids 2 1 Objective General: No acute distress, awake and alert HEENT: NCAT, sclera anicteric, PERRL, EOMI. Neck: Supple, no significant jugular venous distention, Right IJ TLC. Lungs: Good inspiratory effort, no accessory muscle use, no Wheeze or Rales. Heart: Regular rate and Tachycardia,, normal S1/S2, no murmurs Abdomen: soft, nontender, nondistended. Normoactive bowel sounds. / Rectal: Refused and deferred. Extremities: No Cyanosis , clubbing or edema. Neuro: A&O x 3, Able to move all extremities Skin: warm, no rash, Tattoo on UE's Psych: depressed mood and affect Assessment/Plan Assessment/Plan ASSESSMENT: This is a 28-year-old white female. 1. DKA 2. Diabetes type 1. 3. Hyperglycemia. 4. Anxiety disorder. 5. Benzodiazepine dependence. TREATMENT: 1. Hyperglycemia/diabetes type 1. Endocrinology consultation has been obtained with Dr. Philip. weaning off insulin drip 2. Anxiety/benzodiazepine dependence. A Psychiatry consultation has been obtained with Dr. Barajas. -IVF -monitor Labs -monitor culture -may transfer out to ICU soon. Mynor Zavala MD March 26, 2019 13:21
--- NOTE | 2019-03-26 13:24 | General Progress Note ---
Assessment/Plan Problem List: (1) Diabetic keto-acidosis ICD Codes: E11.10 - Type 2 diabetes mellitus with ketoacidosis without coma SNOMED: 134415031, 60951337 (2) Diabetes mellitus ICD Codes: E11.9 - Type 2 diabetes mellitus without complications SNOMED: 19261714 (3) Substance abuse ICD Codes: F19.10 - Other psychoactive substance abuse, uncomplicated SNOMED: 62506476 Assessment/Plan: change Levemir to 8 units bid add Novolog 5 units ac tid NISS ac / hs diabetic diet continue IVF Subjective ROS Limited/Unobtainable: Yes Allergies: Coded Allergies: No Known Allergies (Unverified , 12/06/16) Subjective events noted awake not communicating AG closed off insulin gtt diet started Item Value Date Time Bedside Blood Glucose 203 mg/dl H 03/26/19 1221 Bedside Blood Glucose 97 mg/dl 03/26/19 1040 Bedside Blood Glucose 100 mg/dl 03/26/19 0615 Bedside Blood Glucose 128 mg/dl H 03/26/19 0211 Bedside Blood Glucose 121 mg/dl H 03/25/19 2200 Bedside Blood Glucose 140 mg/dl H 03/25/19 1800 Objective Last 24 Hour Vital Signs Date Time Temp Pulse Resp B/P (MAP) Pulse Ox O2 Delivery O2 Flow Rate FiO2 03/26/19 12:00 98.3 105 18 119/75 (90) 98 03/26/19 12:00 Room Air 03/26/19 12:00 98 20 117/63 (81) 99 03/26/19 11:00 98 20 117/63 (81) 99 03/26/19 10:00 108 19 129/84 (99) 99 03/26/19 09:00 94 20 126/86 (99) 98 03/26/19 08:00 103 03/26/19 08:00 98.2 96 19 131/97 (108) 100 03/26/19 08:00 Room Air 03/26/19 07:00 96 18 137/92 (107) 96 03/26/19 06:00 96 20 118/81 (93) 96 03/26/19 05:00 98 19 137/90 (106) 97 03/26/19 04:00 104 03/26/19 04:00 Room Air 03/26/19 04:00 98.8 104 18 137/98 (111) 96 03/26/19 03:00 105 16 131/96 (108) 95 03/26/19 02:00 108 22 139/94 (109) 95 03/26/19 01:00 109 18 133/90 (104) 98 03/26/19 00:00 99.0 109 20 132/85 (101) 98 03/26/19 00:00 105 03/26/19 00:00 Room Air 03/25/19 23:00 106 17 129/87 (101) 99 03/25/19 22:00 113 16 134/84 (101) 99 03/25/19 21:29 118 22 98 Room Air 21 03/25/19 21:00 111 18 133/86 (102) 98 03/25/19 20:00 106 03/25/19 20:00 Room Air 03/25/19 20:00 99.0 113 18 123/87 (99) 98 03/25/19 19:00 105 14 136/91 (106) 99 03/25/19 18:00 120 25 137/101 (113) 99 03/25/19 17:00 109 15 126/72 (90) 100 03/25/19 16:00 Room Air 03/25/19 16:00 106 03/25/19 16:00 98.0 98 25 119/74 (89) 99 03/25/19 15:00 110 19 142/86 (104) 100 03/25/19 14:00 107 17 131/80 (97) 99 Intake and Output 03/25/19 03/26/19 19:00 07:00 Intake Total 2265.5 ml 2399.83 ml Output Total 900 ml Balance 2265.5 ml 1499.83 ml Intake Oral 200 ml IV Total 2065.5 ml 2399.83 ml Output Urine Total 900 ml # Voids 2 1 Laboratory Tests 03/25/19 19:44: Sodium Level 137, Potassium Level 3.0L, Chloride Level 102, Carbon Dioxide Level 22, Anion Gap 13, Blood Urea Nitrogen 18, Creatinine 1.2, Estimat Glomerular Filtration Rate 53.9, Glucose Level 114H, Calcium Level 8.6 03/26/19 03:50: Sodium Level 132L, Potassium Level 2.9L, Chloride Level 102, Carbon Dioxide Level 21, Anion Gap 9, Blood Urea Nitrogen 13, Creatinine 1.0, Estimat Glomerular Filtration Rate > 60, Glucose Level 117H, Calcium Level 8.7, White Blood Count 13.8H, Red Blood Count 3.73L, Hemoglobin 10.9L, Hematocrit 31.7L, Mean Corpuscular Volume 85, Mean Corpuscular Hemoglobin 29.2, Mean Corpuscular Hemoglobin Concent 34.4, Red Cell Distribution Width 11.4L, Platelet Count 174# , Mean Platelet Volume 4.7L, Neutrophils (%) (Auto) 73.1, Lymphocytes (%) (Auto ) 18.3L, Monocytes (%) (Auto) 8.0, Eosinophils (%) (Auto) 0.2, Basophils (%) ( Auto) 0.5, Prothrombin Time 10.5, Prothromb Time International Ratio 1.0, Activated Partial Thromboplast Time 22L, Phosphorus Level 1.5L, Total Bilirubin 0.4, Direct Bilirubin < 0.1, Aspartate Amino Transf (AST/SGOT) 23, Alanine Aminotransferase (ALT/SGPT) 16, Alkaline Phosphatase 121H, Total Protein 7.0, Albumin 3.3L, Globulin 3.7, Albumin/Globulin Ratio 0.9L 03/26/19 05:00: Urine Opiates Screen Negative, Urine Barbiturates Screen Negative, Phencyclidine (PCP) Screen Negative, Urine Amphetamines Screen Negative, Urine Benzodiazepines Screen Negative, Urine Cocaine Screen Negative, Urine Marijuana (THC) Screen PositiveH 03/26/19 12:00: Sodium Level 137, Potassium Level 3.5, Chloride Level 103, Carbon Dioxide Level 22, Anion Gap 12, Blood Urea Nitrogen 8, Creatinine 0.8, Estimat Glomerular Filtration Rate > 60, Glucose Level 196H, Calcium Level 8.3L Height (Feet): 5 Height (Inches): 3.00 Weight (Pounds): 137 General Appearance: lethargic Neck: normal alignment Cardiovascular: normal rate Respiratory/Chest: decreased breath sounds Abdomen: normal bowel sounds Edema: no edema noted Arm (L), no edema noted Arm (R), no edema noted Leg (L), no edema noted Leg (R), no edema noted Pedal (L), no edema noted Pedal (R), no edema noted Generalized Objective Current Medications Medications (Trade) Dose Ordered Sig/Claudia Route PRN Reason Start Time Stop Time Status Last Admin Dose Admin Acetaminophen (Tylenol) 650 mg Q4H PRN ORAL Fever 03/25/19 06:45 04/24/19 06:44 Albuterol/ Ipratropium (Albuterol/ Ipratropium) 3 ml Q4H PRN HHN Shortness of Breath 03/25/19 06:45 03/30/19 06:44 Chlorhexidine Gluconate (Yue-Hex 2%) 1 applic DAILY@2000 TOPIC 03/25/19 20:00 04/24/19 19:59 03/25/19 20:01 Dextrose (Dextrose 50%) 25 ml Q30M PRN IV HYPOGLYCEMIA 03/25/19 06:45 04/24/19 06:44 Dextrose (Dextrose 50%) 50 ml Q30M PRN IV Hypoglycemia 03/25/19 06:45 04/24/19 06:44 Dextrose/Sodium Chloride 1,000 ml @ 50 mls/hr Q20H IV 03/26/19 09:38 04/25/19 09:37 03/26/19 10:22 Heparin Sodium (Porcine) (Heparin 5000 units/ml) 5,000 units EVERY 12 HOURS SUBQ 03/25/19 09:00 04/24/19 08:59 03/26/19 08:13 Insulin Aspart (NovoLOG) BEFORE MEALS AND HS SUBQ 03/26/19 11:30 04/25/19 11:29 03/26/19 12:21 Insulin Detemir (Levemir) 10 units EVERY 12 HOURS SUBQ 03/26/19 09:30 04/25/19 09:29 03/26/19 10:40 Lorazepam (Ativan 2mg/ml 1ml) 2 mg Q2H PRN IV agitation 03/25/19 06:45 04/01/19 06:44 03/26/19 11:02 Miscellaneous Medication (Insulin Rate Change) 1 ea PRN PRN MISC To Patient Comfort 03/25/19 06:45 04/24/19 06:44 03/26/19 09:11 Morphine Sulfate (Morphine Sulfate) 4 mg Q4H PRN IVP Severe Pain (Pain Scale 7-10) 03/25/19 07:00 04/01/19 06:59 Nitroglycerin (Ntg) 0.4 mg Q5MIN X 3 DOSES PRN SL Prn Chest Pain 03/25/19 07:00 04/24/19 06:59 Ondansetron HCl (Zofran) 4 mg Q6H PRN IVP Nausea & Vomiting 03/25/19 06:45 04/24/19 06:44 03/25/19 13:10 Pantoprazole (Protonix) 40 mg DAILY IVP 03/26/19 09:00 04/25/19 08:59 03/26/19 08:12 Polyethylene Glycol (Miralax) 17 gm DAILYPRN PRN ORAL Constipation 03/25/19 06:45 04/24/19 06:44 Sodium Phosphate 30 mm/Sodium Chloride 285 ml @ 47.5 mls/hr ONCE ONCE IV 03/26/19 12:45 03/26/19 18:44 03/26/19 11:02 Tal Philip MD March 26, 2019 13:24
--- NOTE | 2019-03-26 13:32 | NUR ---
NURSE NOTES: Dr Philip and Karl here to see the patient. Updated them with pt's current condition. Awaiting new orders.
[2019-03-26] MEDS ORDERED: NovoLOG Insulin Flexpen SUBQ SCH (14:00)
--- NOTE | 2019-03-26 14:00 | NUR ---
NURSE NOTES: 5 unit Novolog was not given since pt did not eat lunch.
--- NOTE | 2019-03-26 14:08 | NUR ---
ENVIRONMENTAL JOURNALISTCONTRACT IMPLEMENTATION ANALYST SI:DKA . DEHYDRATION VS: BP 131/97, P 108, T 98.2, RR 20, SpO2 100 WBC 13.8, RBC 3.73, H&H 10.9/31.7 Na 132, K 2.9 IS:NOVOLOG SUBQ LORAZEPAM 2mg IV SODIUM PHOSPHATE 285ml IV LEVEMIR SUBQ POTASSIUM CHLORIDE 100ml IVPB D5/NS x1L IV INSULIN HUMAN REGULAR 100ml IV ICU STATUS
--- NOTE | 2019-03-26 15:07 | NUR ---
NURSE NOTES: Pt refused to eat. Pt is calm, sleeping in bed. Pt is able to wake up and answer for questions. No acute distress noted. Notified charge nurse for transfer.
--- NOTE | 2019-03-26 15:28 | Cardiology Report ---
APPROVED REPORT EKG Measurement Heart [id number] MA [id number] Sinus tachycardia Biatrial enlargement Prolonged QT Abnormal ECG
[2019-03-26] MEDS ORDERED: Nitroglycerin Subl 0.4mg tab SL PRN (16:45)
[2019-03-26] MEDS ORDERED: Albuterol/Ipratropium 3ml neb HHN PRN (16:46)
--- NOTE | 2019-03-26 17:10 | NUR ---
TRANSFER TO FLOOR: Patient transferred to [facility]. Report given to LUKAS Elias. Belongings and medications given to LUKAS Elias.
[2019-03-26] MEDS ORDERED: Miralax 17gm pkt ORAL PRN (17:16)
--- NOTE | 2019-03-26 17:30 | NUR ---
NURSE NOTES: received pt from ICU with stable condition. breathing regular and unlabored. all belongings checked and signed and kept at bedside. noted with repeat order for cmp. blood drawn and sent to the lab. Addendum: 03/26/19 at 1852 by YOLANDA DIOP RN potassium noted with 2.8. notified Dr. callahan and noted with new order.
[2019-03-26] MEDS: Levemir Flexpen SUBQ SCH (17:48)
[2019-03-26 18:09] LABS: ALANINE AMINOTRANSFERASE 17 U/L (12-78); ALBUMIN 3.3 G/DL (3.4-5.0); ALKALINE PHOSPHATASE 133 U/L (46-116); ANION GAP 13 mmol/L (5-15); ASPARTATE AMINO TRANSFERASE 18 U/L (15-37); BILIRUBIN,TOTAL 0.4 MG/DL (0.2-1.0); BLOOD UREA NITROGEN 8 mg/dL (7-18); CALCIUM 8.5 MG/DL (8.5-10.1); CARBON DIOXIDE 22 MMOL/L (21-32); CHLORIDE 105 MMOL/L (98-107); POTASSIUM 2.8 MMOL/L (3.5-5.1); SODIUM 139 MMOL/L (136-145)
[2019-03-26] MEDS: Morphine Sulfate 4mg/ml Inj (IV USE ONLY) IVP PRN ×2 (18:10→22:04)
--- NOTE | 2019-03-26 19:25 | NUR ---
HAND-OFF: Report given to LUKAS Wolfe.
--- NOTE | 2019-03-26 20:00 | NUR ---
NURSE NOTES: PATIENT IN BED, AGITATED, RESTLESS. ON RA, NO SOB, NO ACUTE DISTRESS. PATIENT ASKING FOR PAIN MED, EXPLAINED TIME OF NEXT DOSE, PATIENT VERBALIZED UNDERSTANDING. PICC LINE ON RIJ INTACT, PATENT RUNNING FLUIDS. BED IN LOWEST POSITION, LOCKED, ALARMS ON. CALL LIGHT IN REACH. WILL CONT MONITOR CLOSELY.
[2019-03-26] MEDS: Dyna-Hex 2% Top Sol 2oz TOPIC SCH (20:22)
--- NOTE | 2019-03-26 20:30 | Consultation ---
DATE OF CONSULTATION: 03/26/2019 CONSULTING PHYSICIAN: Dalia Barajas M.D. REFERRING PHYSICIAN: Mynor Zavala M.D. HISTORY OF PRESENT ILLNESS: This is a 28-year-old female with a history of diabetes type 1, anxiety disorder, benzodiazepine dependence, who has been admitted to the hospital due to nausea and vomiting. The patient has severe agitation. During the evaluation, she was minimally talkative and she knew her name and she knew she was in the hospital, however, she did not reply to any other questions. The patient has been taking Klonopin 4 mg a day. In the hospital, she is receiving Ativan and when the Ativan wears off, she becomes severely agitated. She is not endorsing any suicidal or homicidal ideations. The toxicology was positive for cannabis only. PAST PSYCHIATRIC HISTORY: Anxiety disorder. The patient did not reply to most of the question in regards to past psychiatric history. PAST MEDICAL HISTORY: Significant for diabetes mellitus type 1, noncompliance. ALLERGIES: No known drug allergies. SUBSTANCE ABUSE HISTORY: Significant for cannabis and benzodiazepines. MENTAL STATUS EXAMINATION: The patient is alert and oriented to self and place. Mood is neutral to agitation. Affect is blunted, congruent with mood. Thought process is concrete. Thought content, no suicidal or homicidal ideations. Insight and judgment is impaired. Memory, concentration, and attention is impaired. ASSESSMENT: [place] I Acute metabolic encephalopathy. Anxiety disorder. Benzodiazepine dependence. Cannabis dependence. [place] II Deferred. [place] III As above. [place] IV Low to moderate. [place] V 25. PLAN: 1. We will start the patient on Klonopin 1 mg p.o. b.i.d., and we will decrease the medication slowly. 2. Start the patient on Lexapro in the morning. 3. We will continue to follow and readjust the medication. Shey Armstrong JOB#: [id number] CC:
[2019-03-27] VITALS: BP 134/96
[2019-03-27] MEDS: Morphine Sulfate 4mg/ml Inj (IV USE ONLY) IVP PRN ×4 (02:09→14:41)
[2019-03-27 04:00] VITALS: BP 141/100
[2019-03-27] MEDS: NovoLOG Insulin Flexpen SUBQ SCH ×8 (06:25→21:25)
[2019-03-27] MEDS ORDERED: Insulin Rate Change 1 Each MISC PRN (06:45)
--- NOTE | 2019-03-27 07:25 | NUR ---
HAND-OFF: Report given to Jeannette GAYTAN.
[2019-03-27 07:27] LABS: BASOPHILS % (AUTO) 0.6 % (0.0-2.0); EOSINOPHILS % (AUTO) 1.2 % (0.0-3.0); HEMATOCRIT 31.2 % (37.0-47.0); HEMOGLOBIN 10.4 G/DL (12.0-16.0); LYMPHOCYTES % (AUTO) 39.3 % (20.0-45.0); MEAN CORPUSCULAR VOLUME 86 FL (80-99); MONOCYTES % (AUTO) 6.7 % (1.0-10.0); NEUTROPHILS % (AUTO) 52.2 % (45.0-75.0); PLATELET COUNT 128 K/UL (150-450); RED BLOOD COUNT 3.62 M/UL (4.20-5.40); RED CELL DISTRIBUTION WIDTH 11.3 % (11.6-14.8); WHITE BLOOD COUNT 5.4 K/UL (4.8-10.8)
--- NOTE | 2019-03-27 07:37 | NUR ---
NURSE NOTES: Patient alert x4, on room air, no sign of distress and shortness of breath; IV Triple Lumen on Right Internal Jagulat, D51/2NS running at 50cc; bed at lowest position, side rails up x2, breaks engaged; call light within reach; will check blood sugar as scheduled. will keep monitoring.
[2019-03-27 08:00] VITALS: BP 123/86
[2019-03-27 08:21] LABS: ALANINE AMINOTRANSFERASE 18 U/L (12-78); ALBUMIN 3.1 G/DL (3.4-5.0); ALBUMIN/GLOBULIN RATIO 0.9 (1.0-2.7); ALKALINE PHOSPHATASE 130 U/L (46-116); ANION GAP 9 mmol/L (5-15); ASPARTATE AMINO TRANSFERASE 26 U/L (15-37); BILIRUBIN,TOTAL 0.4 MG/DL (0.2-1.0); BLOOD UREA NITROGEN 7 mg/dL (7-18); CALCIUM 8.4 MG/DL (8.5-10.1); CARBON DIOXIDE 23 MMOL/L (21-32); CHLORIDE 102 MMOL/L (98-107); CREATININE 0.7 MG/DL (0.55-1.30); PHOSPHORUS 2.3 MG/DL (2.5-4.9); POTASSIUM 4.9 MMOL/L (3.5-5.1); SODIUM 134 MMOL/L (136-145)
[2019-03-27] MEDS: Levemir Flexpen SUBQ SCH ×2 (08:22→18:34)
[2019-03-27] MEDS: Heparin 5000 units/ml inj SUBQ SCH ×2 (08:23→21:00)
--- NOTE | 2019-03-27 10:23 | General Progress Note ---
Assessment/Plan Problem List: (1) Diabetic keto-acidosis ICD Codes: E11.10 - Type 2 diabetes mellitus with ketoacidosis without coma SNOMED: 132369385, 94942283 (2) Diabetes mellitus ICD Codes: E11.9 - Type 2 diabetes mellitus without complications SNOMED: 58880595 (3) Substance abuse ICD Codes: F19.10 - Other psychoactive substance abuse, uncomplicated SNOMED: 87431103 Assessment/Plan: change Levemir to 10 units bid continue Novolog 5 units ac tid NISS ac / hs diabetic diet Subjective Allergies: Coded Allergies: No Known Allergies (Unverified , 12/06/16) All Systems: reviewed and negative except above Subjective events noted transferred out of ICU Item Value Date Time Bedside Blood Glucose 215 mg/dl H 03/27/19 0822 Bedside Blood Glucose 390 mg/dl H 03/27/19 0630 Bedside Blood Glucose 159 mg/dl H 03/26/19 2100 Bedside Blood Glucose 187 mg/dl H 03/26/19 1748 Bedside Blood Glucose 203 mg/dl H 03/26/19 1221 Bedside Blood Glucose 97 mg/dl 03/26/19 1040 Objective Last 24 Hour Vital Signs Date Time Temp Pulse Resp B/P (MAP) Pulse Ox O2 Delivery O2 Flow Rate FiO2 03/27/19 09:00 Room Air 03/27/19 08:00 97.6 104 20 123/86 (98) 100 03/27/19 07:44 104 20 98 Room Air 21 03/27/19 04:00 98.6 100 20 141/100 (114) 100 03/27/19 00:00 98.5 100 18 134/96 (109) 99 03/26/19 21:01 101 20 98 Room Air 21 03/26/19 20:00 Room Air 03/26/19 20:00 98.8 100 16 136/87 (103) 98 03/26/19 18:40 98.3 03/26/19 17:00 108 17 126/87 (100) 99 03/26/19 16:00 Room Air 03/26/19 16:00 98.3 101 18 126/87 (100) 99 03/26/19 15:41 103 03/26/19 15:00 89 21 136/95 (109) 99 03/26/19 14:00 106 15 132/96 (108) 100 03/26/19 13:00 98 20 115/71 (86) 98 03/26/19 12:00 98.3 105 18 119/75 (90) 98 03/26/19 12:00 Room Air 03/26/19 12:00 104 03/26/19 12:00 98 20 117/63 (81) 99 03/26/19 11:00 98 20 117/63 (81) 99 Intake and Output 03/26/19 03/27/19 18:59 06:59 Intake Total 1393.0 ml 360 ml Output Total 900 ml Balance 493.0 ml 360 ml Intake Oral 360 ml IV Total 1393.0 ml Output Urine Total 900 ml # Voids 2 3 # Bowel Movements 2 Laboratory Tests 03/26/19 12:00: Sodium Level 137, Potassium Level 3.5, Chloride Level 103, Carbon Dioxide Level 22, Anion Gap 12, Blood Urea Nitrogen 8, Creatinine 0.8, Estimat Glomerular Filtration Rate > 60, Glucose Level 196H, Calcium Level 8.3L 03/26/19 17:38: Sodium Level 139, Potassium Level 2.8L, Chloride Level 105, Carbon Dioxide Level 22, Anion Gap 13, Blood Urea Nitrogen 8, Creatinine 1.0, Estimat Glomerular Filtration Rate > 60, Glucose Level 160H, Calcium Level 8.5, Total Bilirubin 0.4, Aspartate Amino Transf (AST/SGOT) 18, Alanine Aminotransferase ( ALT/SGPT) 17, Alkaline Phosphatase 133H, Total Protein 6.6, Albumin 3.3L, Globulin 3.3, Albumin/Globulin Ratio 1.0 03/27/19 06:30: Sodium Level 134L, Potassium Level 4.9#, Chloride Level 102, Carbon Dioxide Level 23, Anion Gap 9, Blood Urea Nitrogen 7, Creatinine 0.7, Estimat Glomerular Filtration Rate > 60, Glucose Level 377#H, Calcium Level 8.4L, Total Bilirubin 0.4, Aspartate Amino Transf (AST/SGOT) 26, Alanine Aminotransferase ( ALT/SGPT) 18, Alkaline Phosphatase 130H, Total Protein 6.4, Albumin 3.1L, Globulin 3.3, Albumin/Globulin Ratio 0.9L, White Blood Count 5.4#, Red Blood Count 3.62L, Hemoglobin 10.4L, Hematocrit 31.2L, Mean Corpuscular Volume 86, Mean Corpuscular Hemoglobin 28.7, Mean Corpuscular Hemoglobin Concent 33.3, Red Cell Distribution Width 11.3L, Platelet Count 128L, Mean Platelet Volume 5.2L, Neutrophils (%) (Auto) 52.2, Lymphocytes (%) (Auto) 39.3, Monocytes (%) (Auto) 6.7, Eosinophils (%) (Auto) 1.2, Basophils (%) (Auto) 0.6, Erythrocyte Sedimentation Rate 25H, Phosphorus Level 2.3L, Magnesium Level 1.6L, C-Reactive Protein, Quantitative 1.3H Height (Feet): 5 Height (Inches): 3.00 Weight (Pounds): 116 General Appearance: no apparent distress Neck: normal alignment Cardiovascular: normal rate Respiratory/Chest: lungs clear Abdomen: normal bowel sounds Pelvis: normal external exam Objective Current Medications Medications (Trade) Dose Ordered Sig/Claudia Route PRN Reason Start Time Stop Time Status Last Admin Dose Admin Acetaminophen (Tylenol) 650 mg Q4H PRN ORAL Fever 03/26/19 16:46 04/25/19 16:45 Albuterol/ Ipratropium (Albuterol/ Ipratropium) 3 ml Q4H PRN HHN Shortness of Breath 03/26/19 16:46 03/31/19 16:45 Chlorhexidine Gluconate (Yue-Hex 2%) 1 applic DAILY@2000 TOPIC 03/26/19 20:00 04/24/19 19:59 03/26/19 20:22 Clonazepam (KlonoPIN) 1 mg BID ORAL 03/26/19 18:00 04/02/19 17:59 03/27/19 08:19 Dextrose (Dextrose 50%) 25 ml Q30M PRN IV Hypoglycemia 03/26/19 17:00 04/25/19 13:29 Dextrose (Dextrose 50%) 50 ml Q30M PRN IV Hypoglycemia 03/26/19 17:00 04/25/19 13:29 Dextrose/Sodium Chloride 1,000 ml @ 50 mls/hr Q20H IV 03/26/19 17:15 04/25/19 17:14 03/26/19 17:45 Escitalopram Oxalate (Lexapro) 10 mg DAILY ORAL 03/27/19 09:00 04/26/19 08:59 03/27/19 08:18 Heparin Sodium (Porcine) (Heparin 5000 units/ml) 5,000 units EVERY 12 HOURS SUBQ 03/26/19 21:00 04/24/19 08:59 03/26/19 20:23 Insulin Aspart (NovoLOG) BEFORE MEALS AND HS SUBQ 03/26/19 21:00 04/25/19 11:29 03/27/19 06:25 Insulin Aspart (NovoLOG) 5 units NOVOTIAC SUBQ 03/26/19 17:17 04/25/19 17:16 Insulin Detemir (Levemir) 8 units BID SUBQ 03/26/19 18:00 04/25/19 09:29 03/27/19 08:22 Magnesium Sulfate 100 ml @ 100 mls/hr Q1H IVPB 03/27/19 09:45 03/27/19 11:44 03/27/19 10:05 Morphine Sulfate (Morphine Sulfate) 4 mg Q4H PRN IVP Severe Pain (Pain Scale 7-10) 03/26/19 16:46 04/02/19 16:45 03/27/19 06:24 Nitroglycerin (Ntg) 0.4 mg Q5MIN X 3 DOSES PRN SL Prn Chest Pain 03/26/19 16:45 04/24/19 06:59 Ondansetron HCl (Zofran) 4 mg Q6H PRN IVP Nausea & Vomiting 03/26/19 16:46 04/25/19 16:45 03/26/19 22:09 Polyethylene Glycol (Miralax) 17 gm DAILYPRN PRN ORAL Constipation 03/26/19 17:16 04/25/19 17:15 Tal Philip MD March 27, 2019 10:23
[2019-03-27] MEDS ORDERED: D5 1/2NS 1000ml IV ONE ×2 (10:55→14:38)
[2019-03-27 12:00] VITALS: BP 127/89
[2019-03-27] MEDS: D5 1/2NS 1,000 ML IV SCH (12:34)
[2019-03-27] MEDS ORDERED: Sodium Phosphate 30 MM in NS 275 ML IV ONE (12:45)
--- NOTE | 2019-03-27 15:11 | Internal Med Progress Note ---
Subjective Date of Service: March 27, 2019 Physician Name Levy Orlando Attending Physician Mynor Zavala MD Current Medications Medications (Trade) Dose Ordered Sig/Claudia Route PRN Reason Start Time Stop Time Status Last Admin Dose Admin Acetaminophen (Tylenol) 650 mg Q4H PRN ORAL Fever 03/26/19 16:46 04/25/19 16:45 Albuterol/ Ipratropium (Albuterol/ Ipratropium) 3 ml Q4H PRN HHN Shortness of Breath 03/26/19 16:46 03/31/19 16:45 Chlorhexidine Gluconate (Yue-Hex 2%) 1 applic DAILY@2000 TOPIC 03/26/19 20:00 04/24/19 19:59 03/26/19 20:22 Clonazepam (KlonoPIN) 1 mg BID ORAL 03/26/19 18:00 04/02/19 17:59 03/27/19 08:19 Dextrose (Dextrose 50%) 25 ml Q30M PRN IV Hypoglycemia 03/26/19 17:00 04/25/19 13:29 Dextrose (Dextrose 50%) 50 ml Q30M PRN IV Hypoglycemia 03/26/19 17:00 04/25/19 13:29 Dextrose/Sodium Chloride 1,000 ml @ 50 mls/hr Q20H IV 03/26/19 17:15 04/25/19 17:14 03/27/19 12:34 Escitalopram Oxalate (Lexapro) 10 mg DAILY ORAL 03/27/19 09:00 04/26/19 08:59 03/27/19 08:18 Heparin Sodium (Porcine) (Heparin 5000 units/ml) 5,000 units EVERY 12 HOURS SUBQ 03/26/19 21:00 04/24/19 08:59 03/26/19 20:23 Insulin Aspart (NovoLOG) BEFORE MEALS AND HS SUBQ 03/26/19 21:00 04/25/19 11:29 03/27/19 12:07 Insulin Aspart (NovoLOG) 5 units NOVOTIAC SUBQ 03/26/19 17:17 04/25/19 17:16 Insulin Detemir (Levemir) 10 units BID SUBQ 03/27/19 18:00 04/25/19 09:29 Morphine Sulfate (Morphine Sulfate) 4 mg Q4H PRN IVP Severe Pain (Pain Scale 7-10) 03/26/19 16:46 04/02/19 16:45 03/27/19 14:41 Nitroglycerin (Ntg) 0.4 mg Q5MIN X 3 DOSES PRN SL Prn Chest Pain 03/26/19 16:45 04/24/19 06:59 Ondansetron HCl (Zofran) 4 mg Q6H PRN IVP Nausea & Vomiting 03/26/19 16:46 04/25/19 16:45 03/26/19 22:09 Polyethylene Glycol (Miralax) 17 gm DAILYPRN PRN ORAL Constipation 03/26/19 17:16 04/25/19 17:15 Allergies: Coded Allergies: No Known Allergies (Unverified , 12/06/16) ROS Limited/Unobtainable: No Constitutional: Reports: no symptoms HEENT: Reports: no symptoms Cardiovascular: Reports: no symptoms Respiratory: Reports: no symptoms Gastrointestinal/Abdominal: Reports: no symptoms Genitourinary: Reports: no symptoms Neurologic/Psychiatric: Reports: no symptoms Subjective 28 YO F admitted with altered mental status and hyperglycemia. Cover for Int med-DR Zavala. Objective Last Vital Signs Date Time Temp Pulse Resp B/P (MAP) Pulse Ox O2 Delivery O2 Flow Rate FiO2 03/27/19 12:00 96.0 98 17 127/89 (102) 98 03/27/19 09:00 Room Air 03/27/19 07:44 21 Laboratory Tests Test 03/26/19 17:38 03/27/19 06:30 Sodium Level 139 MMOL/L (136-145) 134 MMOL/L (136-145) L Potassium Level 2.8 MMOL/L (3.5-5.1) L 4.9 MMOL/L (3.5-5.1) # Chloride Level 105 MMOL/L (98-107) 102 MMOL/L (98-107) Carbon Dioxide Level 22 MMOL/L (21-32) 23 MMOL/L (21-32) Anion Gap 13 mmol/L (5-15) 9 mmol/L (5-15) Blood Urea Nitrogen 8 mg/dL (7-18) 7 mg/dL (7-18) Creatinine 1.0 MG/DL (0.55-1.30) 0.7 MG/DL (0.55-1.30) Estimat Glomerular Filtration Rate > 60 mL/min (>60) > 60 mL/min (>60) Glucose Level 160 MG/DL (74-106) H 377 MG/DL (74-106) #H Calcium Level 8.5 MG/DL (8.5-10.1) 8.4 MG/DL (8.5-10.1) L Total Bilirubin 0.4 MG/DL (0.2-1.0) 0.4 MG/DL (0.2-1.0) Aspartate Amino Transf (AST/SGOT) 18 U/L (15-37) 26 U/L (15-37) Alanine Aminotransferase (ALT/SGPT) 17 U/L (12-78) 18 U/L (12-78) Alkaline Phosphatase 133 U/L (46-116) H 130 U/L (46-116) H Total Protein 6.6 G/DL (6.4-8.2) 6.4 G/DL (6.4-8.2) Albumin 3.3 G/DL (3.4-5.0) L 3.1 G/DL (3.4-5.0) L Globulin 3.3 g/dL 3.3 g/dL Albumin/Globulin Ratio 1.0 (1.0-2.7) 0.9 (1.0-2.7) L White Blood Count 5.4 K/UL (4.8-10.8) # Red Blood Count 3.62 M/UL (4.20-5.40) L Hemoglobin 10.4 G/DL (12.0-16.0) L Hematocrit 31.2 % (37.0-47.0) L Mean Corpuscular Volume 86 FL (80-99) Mean Corpuscular Hemoglobin 28.7 PG (27.0-31.0) Mean Corpuscular Hemoglobin Concent 33.3 G/DL (32.0-36.0) Red Cell Distribution Width 11.3 % (11.6-14.8) L Platelet Count 128 K/UL (150-450) L Mean Platelet Volume 5.2 FL (6.5-10.1) L Neutrophils (%) (Auto) 52.2 % (45.0-75.0) Lymphocytes (%) (Auto) 39.3 % (20.0-45.0) Monocytes (%) (Auto) 6.7 % (1.0-10.0) Eosinophils (%) (Auto) 1.2 % (0.0-3.0) Basophils (%) (Auto) 0.6 % (0.0-2.0) Erythrocyte Sedimentation Rate 25 MM/HR (0-20) H Phosphorus Level 2.3 MG/DL (2.5-4.9) L Magnesium Level 1.6 MG/DL (1.8-2.4) L C-Reactive Protein, Quantitative 1.3 mg/dL (0.00-0.90) H Microbiology Date/Time Source Procedure Growth Status 03/25/19 04:24 Nasal Nares MRSA Culture - Final NO METHICILLIN RESISTANT STAPH AUREUS... Complete 03/25/19 05:02 Urine,Clean Catch Urine Culture - Final NO GROWTH AFTER 48 HOURS Complete 03/25/19 05:00 Arm Right Blood Culture - Preliminary NO GROWTH AFTER 24 HOURS Resulted 03/25/19 04:45 Arm Left Blood Culture - Preliminary NO GROWTH AFTER 24 HOURS Resulted 03/25/19 04:24 Rectum - Final NO CARBAPENEM-RESISTANT ENTEROBACTERI... Complete 03/25/19 04:24 Rectum VRE Culture - Final NO VANCOMYCIN RESISTANT ENTEROCOCCUS ... Complete Intake and Output 03/26/19 03/27/19 19:00 07:00 Intake Total 1191.0 ml 410 ml Output Total 900 ml Balance 291.0 ml 410 ml Intake Oral 360 ml IV Total 1191.0 ml 50 ml Output Urine Total 900 ml # Voids 2 3 # Bowel Movements 2 Assessment/Plan Assessment/Plan ASSESSMENT: This is a 28-year-old white female. 1. Hyperglycemia. 2. Diabetes type 2. 3. Hyperglycemia. 4. Diabetes type 1. 5. Anxiety disorder. 6. Benzodiazepine dependence. TREATMENT: 1. Hyperglycemia/diabetes type 1. Endocrinology consultation has been obtained with Dr. Phiilp. The patient has been started empirically on insulin drip. Repeat BMP is pending. 2. Anxiety/benzodiazepine dependence. A Psychiatry consultation has been obtained with Dr. Barajas. Levy Orlando MD March 27, 2019 15:11
--- NOTE | 2019-03-27 15:13 | NUR ---
CASE MANAGEMENT: REVIEW SI: DKA T 96.0 HR 104 RR 20 BP 141/100 SAT 98% ROOM AIR H/H 10.4/31.2 NA 134 GLUCOSE 377 ALK PHOS 130 IS: LEVEMIR 10UNITS SQ BID NOVOLOG SQ AC/HS D5 1/2 NS IVF @50ML/HR MED/SURG STATUS DCP: PATIENT IS FROM HOME
[2019-03-27 16:00] VITALS: BP 121/86
--- NOTE | 2019-03-27 19:23 | Pulmonology Progress Note ---
Assessment/Plan Problems: (1) Diabetic keto-acidosis (2) Anxiety disorder (3) Diabetes mellitus Assessment/Plan improving sliding scale symptomatic treatment dvt prophylaxis Subjective ROS Limited/Unobtainable: No Constitutional: Reports: no symptoms HEENT: Repors: no symptoms Allergies: Coded Allergies: No Known Allergies (Unverified , 12/06/16) Objective Last 24 Hour Vital Signs Date Time Temp Pulse Resp B/P (MAP) Pulse Ox O2 Delivery O2 Flow Rate FiO2 03/27/19 16:00 97.6 109 20 121/86 (98) 99 03/27/19 15:11 96.0 03/27/19 12:00 96.0 98 17 127/89 (102) 98 03/27/19 09:00 Room Air 03/27/19 08:00 97.6 104 20 123/86 (98) 100 03/27/19 07:44 104 20 98 Room Air 21 03/27/19 04:00 98.6 100 20 141/100 (114) 100 03/27/19 00:00 98.5 100 18 134/96 (109) 99 03/26/19 21:01 101 20 98 Room Air 21 03/26/19 20:00 Room Air 03/26/19 20:00 98.8 100 16 136/87 (103) 98 Intake and Output 03/26/19 03/27/19 19:00 07:00 Intake Total 1191.0 ml 410 ml Output Total 900 ml Balance 291.0 ml 410 ml Intake Oral 360 ml IV Total 1191.0 ml 50 ml Output Urine Total 900 ml # Voids 2 3 # Bowel Movements 2 General Appearance: WD/WN HEENT: normocephalic, atraumatic Respiratory/Chest: lungs clear, normal breath sounds Breasts: no masses Cardiovascular: normal rate, no JVD Abdomen: soft, non tender Skin: no rash Microbiology Date/Time Source Procedure Growth Status 03/25/19 04:24 Nasal Nares MRSA Culture - Final NO METHICILLIN RESISTANT STAPH AUREUS... Complete 03/25/19 05:02 Urine,Clean Catch Urine Culture - Final NO GROWTH AFTER 48 HOURS Complete 03/25/19 05:00 Arm Right Blood Culture - Preliminary NO GROWTH AFTER 24 HOURS Resulted 03/25/19 04:45 Arm Left Blood Culture - Preliminary NO GROWTH AFTER 24 HOURS Resulted 03/25/19 04:24 Rectum - Final NO CARBAPENEM-RESISTANT ENTEROBACTERI... Complete 03/25/19 04:24 Rectum VRE Culture - Final NO VANCOMYCIN RESISTANT ENTEROCOCCUS ... Complete Laboratory Tests 03/27/19 06:30: White Blood Count 5.4#, Red Blood Count 3.62L, Hemoglobin 10.4L, Hematocrit 31.2L, Mean Corpuscular Volume 86, Mean Corpuscular Hemoglobin 28.7, Mean Corpuscular Hemoglobin Concent 33.3, Red Cell Distribution Width 11.3L, Platelet Count 128L, Mean Platelet Volume 5.2L, Neutrophils (%) (Auto) 52.2, Lymphocytes (%) (Auto) 39.3, Monocytes (%) (Auto) 6.7, Eosinophils (%) (Auto) 1.2, Basophils (%) (Auto) 0.6, Erythrocyte Sedimentation Rate 25H, Sodium Level 134L, Potassium Level 4.9#, Chloride Level 102, Carbon Dioxide Level 23, Anion Gap 9, Blood Urea Nitrogen 7, Creatinine 0.7, Estimat Glomerular Filtration Rate > 60, Glucose Level 377#H, Calcium Level 8.4L, Phosphorus Level 2.3L, Magnesium Level 1.6L, Total Bilirubin 0.4, Aspartate Amino Transf (AST/SGOT) 26 , Alanine Aminotransferase (ALT/SGPT) 18, Alkaline Phosphatase 130H, C-Reactive Protein, Quantitative 1.3H, Total Protein 6.4, Albumin 3.1L, Globulin 3.3, Albumin/Globulin Ratio 0.9L Current Medications Medications (Trade) Dose Ordered Sig/Claudia Route PRN Reason Start Time Stop Time Status Last Admin Dose Admin Acetaminophen (Tylenol) 650 mg Q4H PRN ORAL Fever 03/26/19 16:46 04/25/19 16:45 Albuterol/ Ipratropium (Albuterol/ Ipratropium) 3 ml Q4H PRN HHN Shortness of Breath 03/26/19 16:46 03/31/19 16:45 Chlorhexidine Gluconate (Yue-Hex 2%) 1 applic DAILY@1999 TOPIC 03/26/19 20:00 04/24/19 19:59 03/26/19 20:22 Clonazepam (KlonoPIN) 1 mg BID ORAL 03/26/19 18:00 04/02/19 17:59 03/27/19 18:08 Dextrose (Dextrose 50%) 25 ml Q30M PRN IV Hypoglycemia 03/26/19 17:00 04/25/19 13:29 Dextrose (Dextrose 50%) 50 ml Q30M PRN IV Hypoglycemia 03/26/19 17:00 04/25/19 13:29 Dextrose/Sodium Chloride 1,000 ml @ 50 mls/hr Q20H IV 03/26/19 17:15 04/25/19 17:14 03/27/19 12:34 Escitalopram Oxalate (Lexapro) 10 mg DAILY ORAL 03/27/19 09:00 04/26/19 08:59 03/27/19 08:18 Heparin Sodium (Porcine) (Heparin 5000 units/ml) 5,000 units EVERY 12 HOURS SUBQ 03/26/19 21:00 04/24/19 08:59 03/26/19 20:23 Insulin Aspart (NovoLOG) BEFORE MEALS AND HS SUBQ 03/26/19 21:00 04/25/19 11:29 03/27/19 18:08 Insulin Aspart (NovoLOG) 5 units NOVOTIAC SUBQ 03/26/19 17:17 04/25/19 17:16 Insulin Detemir (Levemir) 10 units BID SUBQ 03/27/19 18:00 04/25/19 09:29 03/27/19 18:34 Morphine Sulfate (Morphine Sulfate) 4 mg Q4H PRN IVP Severe Pain (Pain Scale 7-10) 03/26/19 16:46 04/02/19 16:45 03/27/19 14:41 Nitroglycerin (Ntg) 0.4 mg Q5MIN X 3 DOSES PRN SL Prn Chest Pain 03/26/19 16:45 04/24/19 06:59 Ondansetron HCl (Zofran) 4 mg Q6H PRN IVP Nausea & Vomiting 03/26/19 16:46 04/25/19 16:45 03/26/19 22:09 Polyethylene Glycol (Miralax) 17 gm DAILYPRN PRN ORAL Constipation 03/26/19 17:16 04/25/19 17:15 Rocio Massey MD March 27, 2019 19:23
[2019-03-27 20:00] VITALS: BP 113/71
--- NOTE | 2019-03-27 20:00 | NUR ---
NURSE NOTES: PATIENT IN BED. ON RA, NO SOB, NO ACUTE DISTRESS. PATIENT ASKING FOR PAIN MED, EXPLAINED TIME OF NEXT DOSE, PATIENT VERBALIZED UNDERSTANDING. PICC LINE ON RIJ INTACT, PATENT RUNNING FLUIDS. BED IN LOWEST POSITION, LOCKED, ALARMS ON. CALL LIGHT IN REACH.
--- NOTE | 2019-03-27 20:00 | NUR ---
HAND-OFF: Report given to LUKAS Bonilla.
[2019-03-27] MEDS: Dyna-Hex 2% Top Sol 2oz TOPIC SCH (21:24)
[2019-03-28] VITALS: BP 124/82
--- NOTE | 2019-03-28 02:30 | Progress Note ---
DATE: 03/27/2019 SUBJECTIVE: The patient is presenting with anxiety, memory impairment. Continues to have episodes of agitation, is uncooperative with the examination. MENTAL STATUS EXAMINATION: The patient is alert, not answering questions. Mood is neutral to anxious. Affect is flat. Thought process is concrete. Thought content, no suicidal or homicidal ideations. ASSESSMENT: 1. Anxiety disorder. 2. Noncompliance. PLAN: The patient was educated in regards to the compliance. Provide the patient with reality orientation and supportive therapy. Continue the Klonopin. Continue the Lexapro. Dalia Barajas M.D. DR: CM JOB#: [id number] CC:
[2019-03-28] MEDS: Morphine Sulfate 4mg/ml Inj (IV USE ONLY) IVP PRN ×5 (03:00→20:36)
[2019-03-28 04:00] VITALS: BP 114/81
[2019-03-28] MEDS: NovoLOG Insulin Flexpen SUBQ SCH ×7 (06:14→21:00)
[2019-03-28 06:15] LABS: HEMATOCRIT 27.3 % (37.0-47.0); HEMOGLOBIN 9.3 G/DL (12.0-16.0); MEAN CORPUSCULAR VOLUME 85 FL (80-99); PLATELET COUNT 116 K/UL (150-450); RED BLOOD COUNT 3.23 M/UL (4.20-5.40); RED CELL DISTRIBUTION WIDTH 11.3 % (11.6-14.8); WHITE BLOOD COUNT 5.3 K/UL (4.8-10.8)
[2019-03-28 06:47] LABS: ALANINE AMINOTRANSFERASE 23 U/L (12-78); ALBUMIN 2.8 G/DL (3.4-5.0); ALBUMIN/GLOBULIN RATIO 0.8 (1.0-2.7); ALKALINE PHOSPHATASE 127 U/L (46-116); ANION GAP 7 mmol/L (5-15); ASPARTATE AMINO TRANSFERASE 31 U/L (15-37); BILIRUBIN,TOTAL 0.3 MG/DL (0.2-1.0); BLOOD UREA NITROGEN 14 mg/dL (7-18); CALCIUM 8.6 MG/DL (8.5-10.1); CARBON DIOXIDE 27 MMOL/L (21-32); CHLORIDE 105 MMOL/L (98-107); CREATININE 0.7 MG/DL (0.55-1.30); PHOSPHORUS 3.8 MG/DL (2.5-4.9); POTASSIUM 3.7 MMOL/L (3.5-5.1); SODIUM 139 MMOL/L (136-145)
--- NOTE | 2019-03-28 07:15 | NUR ---
HAND-OFF: Report given to MELISSA GAYTAN.
--- NOTE | 2019-03-28 07:20 | NUR ---
NURSE NOTES: Patient alert x4, on room air, no sign of distress and shortness of breath; no sing of chest pain; IV Triple lumen RIJ D51/2NS running at 50cc; bed at lowest position, side rails up x2, breaks engaged; will keep monitoring blood sugar, give pain med as schedules; call light within reach; will keep monitoring.
[2019-03-28 08:00] VITALS: BP 121/83
[2019-03-28] MEDS: Levemir Flexpen SUBQ SCH ×2 (08:18→17:27)
[2019-03-28] MEDS: Heparin 5000 units/ml inj SUBQ SCH ×2 (08:19→20:36)
[2019-03-28] MEDS: D5 1/2NS 1,000 ML IV SCH (08:28)
--- NOTE | 2019-03-28 09:25 | General Progress Note ---
Assessment/Plan Problem List: (1) Diabetic keto-acidosis ICD Codes: E11.10 - Type 2 diabetes mellitus with ketoacidosis without coma SNOMED: 448428486, 48303766 (2) Diabetes mellitus ICD Codes: E11.9 - Type 2 diabetes mellitus without complications SNOMED: 16846889 (3) Substance abuse ICD Codes: F19.10 - Other psychoactive substance abuse, uncomplicated SNOMED: 42894724 Assessment/Plan: continue Levemir 10 units bid continue Novolog 5 units ac tid NISS ac / hs diabetic diet Subjective ROS Limited/Unobtainable: Yes Allergies: Coded Allergies: No Known Allergies (Unverified , 12/06/16) Subjective events noted Item Value Date Time Bedside Blood Glucose 145 mg/dl H 03/28/19 0818 Bedside Blood Glucose 278 mg/dl H 03/28/19 0615 Bedside Blood Glucose 241 mg/dl H 03/27/19 2125 Bedside Blood Glucose 266 mg/dl H 03/27/19 1834 Bedside Blood Glucose 147 mg/dl H 03/27/19 1207 Bedside Blood Glucose 215 mg/dl H 03/27/19 0822 Objective Last 24 Hour Vital Signs Date Time Temp Pulse Resp B/P (MAP) Pulse Ox O2 Delivery O2 Flow Rate FiO2 03/28/19 08:58 98.2 03/28/19 08:00 98.2 84 18 121/83 (96) 98 03/28/19 07:41 101 20 97 Room Air 21 03/28/19 04:00 98.4 95 18 114/81 (92) 97 03/28/19 00:00 97.9 104 18 124/82 (96) 99 03/27/19 21:00 Room Air 03/27/19 20:14 102 20 97 Room Air 21 03/27/19 20:00 98.6 101 19 113/71 (85) 98 03/27/19 16:00 97.6 109 20 121/86 (98) 99 03/27/19 12:00 96.0 98 17 127/89 (102) 98 Intake and Output 03/27/19 03/28/19 19:00 07:00 Intake Total 1350 ml 290 ml Balance 1350 ml 290 ml Intake Oral 240 ml IV Total 550 ml 50 ml Other 800 ml # Voids 2 Laboratory Tests 03/28/19 05:30: White Blood Count 5.3, Red Blood Count 3.23L, Hemoglobin 9.3L, Hematocrit 27.3L , Mean Corpuscular Volume 85, Mean Corpuscular Hemoglobin 28.7, Mean Corpuscular Hemoglobin Concent 34.0, Red Cell Distribution Width 11.3L, Platelet Count 116L, Mean Platelet Volume 4.8L, Neutrophils (%) (Auto) , Lymphocytes (%) (Auto) , Monocytes (%) (Auto) , Eosinophils (%) (Auto) , Basophils (%) (Auto) , Differential Total Cells Counted 100, Neutrophils % ( Manual) 45, Lymphocytes % (Manual) 50H, Monocytes % (Manual) 3, Eosinophils % ( Manual) 2, Basophils % (Manual) 0, Band Neutrophils 0, Platelet Estimate DecreasedL, Platelet Morphology Normal, Red Blood Cell Morphology Normal, Sodium Level 139, Potassium Level 3.7, Chloride Level 105, Carbon Dioxide Level 27, Anion Gap 7, Blood Urea Nitrogen 14, Creatinine 0.7, Estimat Glomerular Filtration Rate > 60, Glucose Level 246#H, Calcium Level 8.6, Phosphorus Level 3.8, Magnesium Level 1.8, Total Bilirubin 0.3, Aspartate Amino Transf (AST/SGOT ) 31, Alanine Aminotransferase (ALT/SGPT) 23, Alkaline Phosphatase 127H, Total Protein 6.3L, Albumin 2.8L, Globulin 3.5, Albumin/Globulin Ratio 0.8L Height (Feet): 5 Height (Inches): 3.00 Weight (Pounds): 115 General Appearance: no apparent distress Neck: normal alignment Cardiovascular: normal rate Respiratory/Chest: decreased breath sounds Abdomen: normal bowel sounds Objective Current Medications Medications (Trade) Dose Ordered Sig/Claudia Route PRN Reason Start Time Stop Time Status Last Admin Dose Admin Acetaminophen (Tylenol) 650 mg Q4H PRN ORAL Fever 03/26/19 16:46 04/25/19 16:45 Albuterol/ Ipratropium (Albuterol/ Ipratropium) 3 ml Q4H PRN HHN Shortness of Breath 03/26/19 16:46 03/31/19 16:45 Chlorhexidine Gluconate (Yue-Hex 2%) 1 applic DAILY@2000 TOPIC 03/26/19 20:00 04/24/19 19:59 03/27/19 21:24 Clonazepam (KlonoPIN) 1 mg BID ORAL 03/26/19 18:00 04/02/19 17:59 03/28/19 08:16 Dextrose (Dextrose 50%) 25 ml Q30M PRN IV Hypoglycemia 03/26/19 17:00 04/25/19 13:29 Dextrose (Dextrose 50%) 50 ml Q30M PRN IV Hypoglycemia 03/26/19 17:00 04/25/19 13:29 Dextrose/Sodium Chloride 1,000 ml @ 50 mls/hr Q20H IV 03/26/19 17:15 04/25/19 17:14 03/28/19 08:28 Escitalopram Oxalate (Lexapro) 10 mg DAILY ORAL 03/27/19 09:00 04/26/19 08:59 03/28/19 08:16 Heparin Sodium (Porcine) (Heparin 5000 units/ml) 5,000 units EVERY 12 HOURS SUBQ 03/26/19 21:00 04/24/19 08:59 03/26/19 20:23 Insulin Aspart (NovoLOG) BEFORE MEALS AND HS SUBQ 03/26/19 21:00 04/25/19 11:29 03/28/19 06:14 Insulin Aspart (NovoLOG) 5 units NOVOTIAC SUBQ 03/26/19 17:17 04/25/19 17:16 Insulin Detemir (Levemir) 10 units BID SUBQ 03/27/19 18:00 04/25/19 09:29 03/28/19 08:18 Morphine Sulfate (Morphine Sulfate) 4 mg Q4H PRN IVP Severe Pain (Pain Scale 7-10) 03/26/19 16:46 04/02/19 16:45 03/28/19 08:28 Nitroglycerin (Ntg) 0.4 mg Q5MIN X 3 DOSES PRN SL Prn Chest Pain 03/26/19 16:45 04/24/19 06:59 Ondansetron HCl (Zofran) 4 mg Q6H PRN IVP Nausea & Vomiting 03/26/19 16:46 04/25/19 16:45 03/26/19 22:09 Polyethylene Glycol (Miralax) 17 gm DAILYPRN PRN ORAL Constipation 03/26/19 17:16 04/25/19 17:15 Tal Philip MD March 28, 2019 09:25
--- NOTE | 2019-03-28 10:20 | NUR ---
NURSE NOTES: Patient is asking if she can be discharge today; I communicate MD Zavala regarding the matter. Waiting for order.
--- NOTE | 2019-03-28 11:18 | NUR ---
NURSE NOTES: MD Love communicated me back regarding patient's question for discharge, MD Zavala said after MD Orlando visit to patient. Patient notified.
[2019-03-28 12:00] VITALS: BP 109/75
--- NOTE | 2019-03-28 13:25 | NUR ---
NURSE NOTES: pt stating that her mom amanda tracked her phone at [employer] [email or web address] [phone] called and left voicemail 2x and left number for nurses station and amanda's number [phone] as a call back number on the inventory list, there are no phones listed.
--- NOTE | 2019-03-28 13:52 | Internal Med Progress Note ---
Subjective Date of Service: March 28, 2019 Physician Name Levy Orlando Attending Physician Mynor Zavala MD Current Medications Medications (Trade) Dose Ordered Sig/Claudia Route PRN Reason Start Time Stop Time Status Last Admin Dose Admin Acetaminophen (Tylenol) 650 mg Q4H PRN ORAL Fever 03/26/19 16:46 04/25/19 16:45 Albuterol/ Ipratropium (Albuterol/ Ipratropium) 3 ml Q4H PRN HHN Shortness of Breath 03/26/19 16:46 03/31/19 16:45 Chlorhexidine Gluconate (Yue-Hex 2%) 1 applic DAILY@2000 TOPIC 03/26/19 20:00 04/24/19 19:59 03/27/19 21:24 Clonazepam (KlonoPIN) 1 mg BID ORAL 03/26/19 18:00 04/02/19 17:59 03/28/19 08:16 Dextrose (Dextrose 50%) 25 ml Q30M PRN IV Hypoglycemia 03/26/19 17:00 04/25/19 13:29 Dextrose (Dextrose 50%) 50 ml Q30M PRN IV Hypoglycemia 03/26/19 17:00 04/25/19 13:29 Dextrose/Sodium Chloride 1,000 ml @ 50 mls/hr Q20H IV 03/26/19 17:15 04/25/19 17:14 03/28/19 08:28 Escitalopram Oxalate (Lexapro) 10 mg DAILY ORAL 03/27/19 09:00 04/26/19 08:59 03/28/19 08:16 Heparin Sodium (Porcine) (Heparin 5000 units/ml) 5,000 units EVERY 12 HOURS SUBQ 03/26/19 21:00 04/24/19 08:59 03/26/19 20:23 Insulin Aspart (NovoLOG) BEFORE MEALS AND HS SUBQ 03/26/19 21:00 04/25/19 11:29 03/28/19 12:39 Insulin Aspart (NovoLOG) 5 units NOVOTIAC SUBQ 03/26/19 17:17 04/25/19 17:16 03/28/19 12:38 Insulin Detemir (Levemir) 10 units BID SUBQ 03/27/19 18:00 04/25/19 09:29 03/28/19 08:18 Morphine Sulfate (Morphine Sulfate) 4 mg Q4H PRN IVP Severe Pain (Pain Scale 7-10) 03/26/19 16:46 04/02/19 16:45 03/28/19 12:36 Nitroglycerin (Ntg) 0.4 mg Q5MIN X 3 DOSES PRN SL Prn Chest Pain 03/26/19 16:45 04/24/19 06:59 Ondansetron HCl (Zofran) 4 mg Q6H PRN IVP Nausea & Vomiting 03/26/19 16:46 04/25/19 16:45 03/26/19 22:09 Polyethylene Glycol (Miralax) 17 gm DAILYPRN PRN ORAL Constipation 03/26/19 17:16 04/25/19 17:15 Allergies: Coded Allergies: No Known Allergies (Unverified , 12/06/16) ROS Limited/Unobtainable: No Constitutional: Reports: no symptoms HEENT: Reports: no symptoms Cardiovascular: Reports: no symptoms Respiratory: Reports: no symptoms Gastrointestinal/Abdominal: Reports: no symptoms Genitourinary: Reports: no symptoms Neurologic/Psychiatric: Reports: no symptoms Subjective 28 YO F admitted with altered mental status and hyperglycemia. Cover for Int med-DR Zavala. Objective Last Vital Signs Date Time Temp Pulse Resp B/P (MAP) Pulse Ox O2 Delivery O2 Flow Rate FiO2 03/28/19 13:06 98.4 03/28/19 12:00 97 16 109/75 (86) 98 03/28/19 09:00 Room Air 03/28/19 07:41 21 Laboratory Tests Test 03/28/19 05:30 White Blood Count 5.3 K/UL (4.8-10.8) Red Blood Count 3.23 M/UL (4.20-5.40) L Hemoglobin 9.3 G/DL (12.0-16.0) L Hematocrit 27.3 % (37.0-47.0) L Mean Corpuscular Volume 85 FL (80-99) Mean Corpuscular Hemoglobin 28.7 PG (27.0-31.0) Mean Corpuscular Hemoglobin Concent 34.0 G/DL (32.0-36.0) Red Cell Distribution Width 11.3 % (11.6-14.8) L Platelet Count 116 K/UL (150-450) L Mean Platelet Volume 4.8 FL (6.5-10.1) L Neutrophils (%) (Auto) % (45.0-75.0) Lymphocytes (%) (Auto) % (20.0-45.0) Monocytes (%) (Auto) % (1.0-10.0) Eosinophils (%) (Auto) % (0.0-3.0) Basophils (%) (Auto) % (0.0-2.0) Differential Total Cells Counted 100 Neutrophils % (Manual) 45 % (45-75) Lymphocytes % (Manual) 50 % (20-45) H Monocytes % (Manual) 3 % (1-10) Eosinophils % (Manual) 2 % (0-3) Basophils % (Manual) 0 % (0-2) Band Neutrophils 0 % (0-8) Platelet Estimate Decreased L Platelet Morphology Normal Red Blood Cell Morphology Normal Sodium Level 139 MMOL/L (136-145) Potassium Level 3.7 MMOL/L (3.5-5.1) Chloride Level 105 MMOL/L (98-107) Carbon Dioxide Level 27 MMOL/L (21-32) Anion Gap 7 mmol/L (5-15) Blood Urea Nitrogen 14 mg/dL (7-18) Creatinine 0.7 MG/DL (0.55-1.30) Estimat Glomerular Filtration Rate > 60 mL/min (>60) Glucose Level 246 MG/DL (74-106) #H Calcium Level 8.6 MG/DL (8.5-10.1) Phosphorus Level 3.8 MG/DL (2.5-4.9) Magnesium Level 1.8 MG/DL (1.8-2.4) Total Bilirubin 0.3 MG/DL (0.2-1.0) Aspartate Amino Transf (AST/SGOT) 31 U/L (15-37) Alanine Aminotransferase (ALT/SGPT) 23 U/L (12-78) Alkaline Phosphatase 127 U/L (46-116) H Total Protein 6.3 G/DL (6.4-8.2) L Albumin 2.8 G/DL (3.4-5.0) L Globulin 3.5 g/dL Albumin/Globulin Ratio 0.8 (1.0-2.7) L Intake and Output 03/27/19 03/28/19 18:59 06:59 Intake Total 1400 ml 290 ml Balance 1400 ml 290 ml Intake Oral 240 ml IV Total 600 ml 50 ml Other 800 ml # Voids 2 Objective PHYSICAL EXAMINATION: GENERAL: The patient is a well-developed and well-nourished thin-appearing white female, who is anxious. HEENT: Eyes, pupils are equal and responsive to light and accommodation. Extraocular movements are intact. NECK: Supple. No lymphadenopathy. CHEST: Lungs are clear to auscultation bilaterally without wheezes or rales. CARDIOVASCULAR: Regular rhythm and rate. S1 and S2 are normal without murmurs, rubs, or gallops. ABDOMEN: Soft, nontender, and nondistended. Positive bowel sounds. No evidence of hepatosplenomegaly. Currently, no rebound or guarding noted. EXTREMITIES: Negative for clubbing, cyanosis, or edema. RECTAL/GENITAL: Not performed. NEUROLOGIC: Cranial nerves II through XII are grossly intact without focal deficits. Motor strength is 5/5 bilaterally. Deep tendon reflexes are 2+ plantar. Assessment/Plan Assessment/Plan ASSESSMENT: This is a 28-year-old white female. 1. Hyperglycemia. 2. Diabetes type 2. 3. Hyperglycemia. 4. Diabetes type 1. 5. Anxiety disorder. 6. Benzodiazepine dependence. TREATMENT: 1. Hyperglycemia/diabetes type 1. Endocrinology consultation has been obtained with Dr. Philip. The patient has been started empirically on insulin drip. Repeat BMP is pending. 2. Anxiety/benzodiazepine dependence. A Psychiatry consultation has been obtained with Dr. Barajas. 3. Discharge home today Levy Orlando MD March 28, 2019 13:52
--- NOTE | 2019-03-28 14:31 | NUR ---
NURSE NOTES: paged dr Orlando for order to remove iv cathter from right neck , and for to call [facility] pharmacy due to different meds on subscriptions compared to what pt takes at home per pt she takes suboxone 6 mg bid and klonopin 1 mg tid. wrote these as prn and different frequencies awaiting call back Addendum: 03/28/19 at 1548 by ISMA YADAV RN received a call back and talked to dr Orlando per he did write 6 mg in the rx, and he does not want to change the klonopin due to hx of klonopin overdose and that he gave her a card and she can go to the office. relayed to pt. original rx given to pt.
--- NOTE | 2019-03-28 15:06 | NUR ---
CASE MANAGEMENT: REVIEW SI: DKA T 98.2 HR 101 RR 20 BP 121/83 SAT 97% ROOM AIR H/H 9.3/27.3 GLUCOSE 246 ALK PHOS 127 IS: LEVEMIR 10UNITS SQ BID NOVOLOG SQ AC/HS D5 1/2 NS IVF @50ML/HR MED/SURG STATUS DCP: PATIENT IS FROM HOME
[2019-03-28 16:00] VITALS: BP 119/82
--- NOTE | 2019-03-28 17:00 | NUR ---
NURSE NOTES: Patient stated that she doesn't want to leave today; she said she lost her ID and the pharmacy couldn't able to give her her prescription medications that MD Orlando ordered for her upon discharge. She said she will leave by tomorrow. Charge nurse, Min notified and I called MD Orlando regarding the matter. Waiting call back.
--- NOTE | 2019-03-28 19:33 | NUR ---
NURSE NOTES: Received patient standing in room, boyfriend at the bedside, wanting to go downstairs to smoke. DC order given today but patient would like to stay overnight. Dr Orlando contacted by AM nurse, awaiting call back. No s/s of acute distress, on room air, c/o mild pain at this time. Siderails padded as seizure precaution.
--- NOTE | 2019-03-28 19:44 | NUR ---
HAND-OFF: Report given to LUKAS Keene.
[2019-03-28] MEDS: Dyna-Hex 2% Top Sol 2oz TOPIC SCH (19:52)
[2019-03-28 20:00] VITALS: BP 121/78
[2019-03-29] VITALS: BP 135/89
--- NOTE | 2019-03-29 00:30 | Progress Note ---
DATE: 03/28/2019 SUBJECTIVE: Mental condition is unchanged since previous encounter. continues to be anxious requiring antianxiety medications. MENTAL STATUS EXAMINATION: The patient is alert and oriented to time, self, and place. She is uncooperative with the examination. Mood is anxious. Affect is constricted. Congruent mood. Thought process is concrete. Thought content, no suicidal or homicidal ideation. ASSESSMENT: Acute encephalopathy. PLAN: We will continue current medications. Provide the patient with reality orientation and supportive therapy. Dalia Barajas M.D. DR: DELMIS JOB#: [id number] CC: RASHIDA
[2019-03-29] MEDS: Morphine Sulfate 4mg/ml Inj (IV USE ONLY) IVP PRN ×2 (00:35→05:53)
--- NOTE | 2019-03-29 01:01 | NUR ---
NURSE NOTES: Patient unable to picket [employer] prescription from pharmacy, does not want to be discharged without it. I was told they will "pick it up in the morning". No call back from Dr Orlando regarding patient staying overnight.
[2019-03-29 04:00] VITALS: BP 107/72
[2019-03-29] MEDS: D5 1/2NS 1,000 ML IV SCH (05:07)
[2019-03-29] MEDS: NovoLOG Insulin Flexpen SUBQ SCH (06:04)
--- NOTE | 2019-03-29 07:01 | NUR ---
NURSE NOTES: Patient discharged at 0640. Packet given to patient and signed. Charge nurse removed IJ triple lumen. Pressure dressing applied, no bleeding. Patient left with boyfriend.
--- NOTE | 2019-03-30 08:02 | Discharge Summary ---
Discharge Summary Discharge Summary _ DATE OF ADMISSION: 03/25/2019 DATE OF DISCHARGE: 03/29/2019 DISCHARGED BY: Dr. Zavala REASON FOR ADMISSION: 28 years old female with past medical history of diabetes, substance abuse, anxiety disorder, was brought to the emergency department with nausea and vomiting. Patient also reported withdrawal from benzodiazepine. She reported multiple episodes of emesis , no hematemesis . She could not remember when the last time she took insulin. Upon evaluation vital signs revealed elevated blood pressure 153/96. Central line was placed due to poor venous access. Chest x-ray done after central line placement and revealed right jugular line in good position, no pneumothorax. Laboratory work-up revealed leukocytosis WBC 13.4 , hemoglobin 10.8, hematocrit 31.9. Glucose 681. CO2 - 9 , anion gap -36. BUN 29, creatinine 1.5. Urine toxicology screen was positive for marijuana. Urinalysis revealed pyuria and few bacteria , positive for leukocyte esterase , +4 ketones , +4 glucose, +2 protein. Urine test was negative. Patient started on insulin drip and admitted to ICU for diabetic ketoacidosis. CONSULTANTS: pulmonary/ sandwich wrapper Dr. Massey psychiatrist endocrinology [facility] COURSE: Patient admitted to ICU and started on insulin drip as per protocol and generous IV hydration. Merchandising Professor followed . Blood sugar was monitored initially every hour. When anion gap closed , insulin drip stopped, and patient started on long- acting insulin along with short acting pre-meal insulin. Sliding scale of short-acting insulin was implemented as needed. Patient was provided with diabetic diet. Patient was counseled on compliance with anti-glycemic regimen at home. Electrolytes were closely monitored and corrected as needed , nephrotoxins were avoided. Potassium, magnesium and phosphorus replaced and prior to discharge all within normal limits. Acute kidney injury resolved with IV hydration . Prior to discharge BUN from 29 down to 14 and creatinine from 1.5 down to 0.7. DVT and GI prophylaxis provided. Supportive care provided. Antiemetic were on board as needed. Patient was able to tolerate diet. Psychiatrist followed. Patient started on Lexapro. Psychiatric medication regimen optimized and medication were slowly down titrated. Mental status was closely monitored and improved as blood sugar stabilized. Reality orientation , supportive therapy and counseling provided by psychiatrist. Patient clinically stabilized and was ready for discharge. FINAL DIAGNOSES: Diabetic ketoacidosis Diabetes mellitus type 1 with hyperglycemia Benzodiazepine dependency Cannabis dependence Anxiety disorder Acute metabolic encephalopathy Electrolyte imbalance-resolved Acute kidney injury, likely due to dehydration -resolved DISCHARGE MEDICATIONS: See Medication Reconciliation list. DISCHARGE INSTRUCTIONS: Patient was discharged home . Follow up with primary care provider in one week. I have been assigned to dictate discharge summary for this account. I was not involved in the patient's management. Shalini Watson NP March 30, 2019 08:02
== END 2019-03-29 06:40 | disposition home or self-care (01) | DRG 637 ==
LOC: EDUNIT# 03:38 → EDBD 03:38 → EMR 03:50 → ICU 05:12 → EDBEDREQ 05:59 → 4E 03-26 17:15
DX: E10.10 Type 1 diabetes mellitus with ketoacidosis without coma (principal); G93.41 Metabolic encephalopathy; F13.20 Sedative, hypnotic or anxiolytic dependence, uncomplicated; N17.9 Acute kidney failure, unspecified; F41.9 Anxiety disorder, unspecified; Z79.4 Long term (current) use of insulin; F12.20 Cannabis dependence, uncomplicated; E87.8 Other disorders of electrolyte and fluid balance, not elsewhere classified; E86.0 Dehydration; Z91.14 Patient's other noncompliance with medication regimen
CPT/HCPCS: 36415; 71045; 80048; 80053; 80076; 80307; 81003; 81025; 82009; 82962; 83735; 84100; 85007; 85025; 85610; 85651; 85730; 86140; 87040; 87081; 87086; 93005; 94664; 96365; 96367; 96375; 99291; J1815; J2405; J2765; J8499; S5561